=== PATIENT | female | born 1985 | race Caucasian/White ===

== ENCOUNTER 2022-12-12 07:10 | Outpatient (CLI) | payer OTHER, SELFPAY ==
--- NOTE | 2022-12-12 07:15 | CRLHL7_ITS ---
For Patients: As a result of the Century Cures Act, medical imaging exams and procedure reports are released immediately into your electronic medical record. You may view this report before your referring provider. If you have questions, please contact your health care provider. INDICATION: First trimester scan, establish dates. COMPARISON: None. TECHNIQUE: Real-time gonzalez-scale imaging of the pelvis was performed. FINDINGS: Sonographic imaging demonstrates a single living intrauterine gestation. The embryo demonstrates a regular cardiac rate measuring 163 beats per minute. The embryo`s crown-rump length measurement of 2.0 cm corresponds to a gestational age of 8 weeks 4 days with a sonographic due date of 07/20/2023. There is a normal-appearing yolk sac. There are no gross abnormalities noted within the embryo at this early state of development. The gestational sac has a normal appearance. There is no evidence of a perigestational hemorrhage. The amount of fluid within the sac appears appropriate for gestational age. The cervix is closed. The myometrium appears normal. Corpus luteal cyst left ovary. Right ovary not visualized. There are no suspicious fluid collections noted in the cul-de-sac. IMPRESSION: Normal first trimester OB ultrasound exam. Gestational age calculated at 8 weeks 4 days with a sonographic due date of 07/20/2023. Dictated by Prasanth Rosales MD @ 12/13/2022 4:11:59 PM (Electronically Signed)
== END 2022-12-12 07:11 | disposition home or self-care (01) ==
PROVIDERS: Visit Provider Physician Assistant
DX: Z34.91 Encounter for supervision of normal pregnancy, unspecified, first trimester (principal); Z3A.08 8 weeks gestation of pregnancy
CPT/HCPCS: 76817; 82565; 82570; 84156; 84450; 84460; 84520; 84550; 86592; 86703; 86762; 86787; 86803; 86850; 86900; 86901; 87086; 87340; 87491; 87591

== ENCOUNTER 2022-12-23 07:53 | Outpatient (CLI) | payer OTHER, SELFPAY | END 2022-12-23 07:54 | disposition home or self-care (01) | LOC: NFLDREF 09:39 | PROVIDERS: Visit Provider Physician Assistant | DX: Z34.91 Encounter for supervision of normal pregnancy, unspecified, first trimester (principal); Z3A.09 9 weeks gestation of pregnancy | CPT/HCPCS: 82570; 84156 ==

== ENCOUNTER 2023-02-04 09:15 | Outpatient (CLI) | payer OTHER, SELFPAY | END 2023-02-04 09:16 | disposition home or self-care (01) | LOC: NFLDREF 09:17 | PROVIDERS: Visit Provider Advanced Practice Midwife | DX: O09.522 Supervision of elderly multigravida, second trimester (principal); Z3A.16 16 weeks gestation of pregnancy | CPT/HCPCS: 81511 ==

== ENCOUNTER 2023-04-02 15:59 | Outpatient (CLI) | payer OTHER, SELFPAY | END 2023-04-02 16:00 | disposition home or self-care (01) | LOC: NFLDREF 16:00 | PROVIDERS: Visit Provider Advanced Practice Midwife | DX: Z34.92 Encounter for supervision of normal pregnancy, unspecified, second trimester (principal); Z3A.24 24 weeks gestation of pregnancy | CPT/HCPCS: 87086 ==

== ENCOUNTER 2023-04-28 16:18 | Outpatient (CLI) | payer BC, SELFPAY | END 2023-04-28 16:19 | disposition home or self-care (01) | LOC: NFLDREF 05-03 04:37 | PROVIDERS: Visit Provider Advanced Practice Midwife | DX: Z34.91 Encounter for supervision of normal pregnancy, unspecified, first trimester (principal) | CPT/HCPCS: 86592 ==

== ENCOUNTER 2023-05-28 15:58 | Outpatient (CLI) | payer BC, SELFPAY ==
[2023-05-28 15:58] VITALS: BP 136/85; PULSE 67; RESP 16; TEMP 36.6; O2SAT 99
[2023-05-28 16:53] VITALS: BP 146/80; PULSE 68
[2023-05-28 17:02] LABS: Amnisure Rom* Negative
--- NOTE | 2023-05-28 17:07 | P.OBLDTN_ITS ---
OB - Triage/Final Diagnosis Visit Information Date of evaluation: 05/28/23 Narrative: The patient is a 37 year old 4 para 1 at 32.0 weeks gestation by LMP, who presents with complaints of pelvic pressure, right sided groin pain, back pain and increased vaginal discharge for 3 days. She was sent from the clinic with concerns for labor for further evaluation. EFM showed frequent contractions, pt was not fully aware of them until placed on monitor and able to trace. She was hydrated orally and an AmniSure, FFN, UA, wet prep, and Preeclampsia labs were sent. All were negative except her Protein/creatinine ratio was 0.4. She had one elevated blood pressure on admission to triage of 146/80. No further elevations and no recorded elevations at previous visits. At the start of her she had baseline Preeclampsia labs done and at that time her Protein/creatinine ratio was 0.7 with a normal 24 hour urine at that time. Cervical exam 2 hours apart was unchanged, . Reviewed warning signs of PTL with patient and what to come back for, she verbalized understanding. Given a work note to be off work for tomorrow if needed. 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 Reason for evaluation: threatened labor Comments/Additional reasons for admission: Assessment at 32.0 weeks Threatened PTL no cervical change D/C home with PTL precautions Elevated BP without the diagnosis of Preeclampsia S/S Preeclampsia reviewed Monitor BP at next clinic visit Evaluation Cervical dilation (cm): 1 Cervical effacement (%): 30 Vital signs: Vital Signs - 24 hr Temperature 98 F 05/28/23 15:58 Pulse Rate 70 05/28/23 17:18 Respiratory Rate 16 05/28/23 15:58 Blood Pressure 129/86 05/28/23 17:18 Blood Pressure Mean 101 05/28/23 17:18 Pulse Oximetry 99 05/28/23 15:58 05/28/23 16:53 Pulse Rate 68 Blood Pressure 146/80 H Fetus (Single) Heart Rate Baseline: 130 Assistant Plant Manager Variability: Moderate (6-25) Monitor Accelerations: Present Monitor Decelerations: None Station: -3 Final Diagnosis (1) Threatened labor: Status: Acute (2) Elevated blood pressure reading without diagnosis of hypertension: Status: Acute
[2023-05-28 17:09] LABS: Appearance Urine Clear (Clear); Bilirubin Urine Negative (Negative); Blood Urine Negative (Negative); Color Urine Yellow (Yellow); Glucose Urine Negative (Negative); Ketones Urine Negative (Negative); Leukocyte Esterase Urine Negative (Negative); Nitrite Urine Negative (Negative); Protein Urine Negative (Negative); Specific Gravity Urine 1.015 (1.000-1.030); Urobilinogen Urine 0.2 (0.2-1.0); pH Urine 6.5 (5.0-8.5)
[2023-05-28 17:13] LABS: Clue Cells No Clue Cells Seen (None Seen); Trichomonas No Trichomonas Seen (None Seen); Yeast No Yeast Seen (None Seen)
[2023-05-28 17:18] VITALS: BP 129/86; PULSE 70
[2023-05-28 17:27] LABS: Hematocrit 41.8 % (33.0-51.0); Hemoglobin* 14.5 gm/dL (12.0-16.0); Mean Corpuscular HGB Conc 35 gm/dL (32-36); Mean Corpuscular Hemoglobin 33 pg (26-34); Mean Corpuscular Volume 95 fL (80-100); Platelet Count* 220 K/uL (140-440); Red Blood Count 4.42 m/uL (4.00-5.20); White Blood Count* 8.17 K/uL (4.50-11.00)
[2023-05-28 17:28] LABS: Slide Review Reflex No
[2023-05-28 17:38] LABS: Creatinine* 0.6 mg/dL (0.5-1.5); Estimated Glomerular Filt Rate 118 ml/min
[2023-05-28 17:39] LABS: Alanine Aminotransferase* 19 U/L (4-35); Aspartate Amino Transferase* 32 U/L (12-35); Blood Urea Nitrogen* 13 mg/dL (5-24)
[2023-05-28 17:59] LABS: Total Protein Urine 13 mg/dL
[2023-05-28 18:12] LABS: Creatinine Urine 28.4 mg/dL
[2023-05-28 18:38] LABS: Fetal Fibronectin* Negative (Negative)
--- NOTE | 2023-05-28 18:52 | PC.OBNST ---
NST Note NST Note Start: 05/28/23 16:01 Freq: ONCE Status: Active Protocol: Document 05/28/23 18:51 TASH (Rec: 05/28/23 18:52 TASH [id number]) NST Note 4 Para (# of births) 1 EDC 07/23/23 Gestational Age In Weeks & Days 32 Weeks & 0 Days High Risk Factors Advanced Maternal Age Patient Presented with Complaint(s) of Contractions/cramping Reactive Yes Appropriate for Gestational Age Yes RN Steven Mchugh RNC Date 05/28/23 Reactive Yes Appropriate for Gestational Age Yes RENA Vargas, RENA Date 05/28/23 OB NST charge Yes Complete NST Note via Write Note Yes The provider's electronic signature indicates the NST is reactive/appropriate for gestational age. *Note to provider: If an addendum is required, open the patient's chart and click on the note under the Nurse/Allied Health tab.
== END 2023-05-28 19:14 | disposition home or self-care (01) ==
LOC: OB OUT 15:58 → OB 15:59
PROVIDERS: PCP Family Medicine; Visit Provider Advanced Practice Midwife
DX: O47.00 False labor before 37 completed weeks of gestation, unspecified trimester (principal); O09.523 Supervision of elderly multigravida, third trimester; Z3A.32 32 weeks gestation of pregnancy
CPT/HCPCS: 36415; 59025; 81003; 82565; 82570; 84112; 84156; 84450; 84460; 84520; 85027; 87210; G0463

== ENCOUNTER 2023-06-30 07:30 | Outpatient (RCR) | payer BC, SELFPAY | END 2023-09-09 10:19 | disposition home or self-care (01) | PROVIDERS: PCP Family Medicine; Visit Provider Advanced Practice Midwife | DX: N81.89 Other female genital prolapse (principal); Z51.89 Encounter for other specified aftercare | CPT/HCPCS: 87081; 87653; 97112; 97161; 97535 ==

== ENCOUNTER 2023-07-10 22:25 | Inpatient (IN) | payer BC, SELFPAY ==
[2023-07-10] VITALS (14 sets, daily range): BP systolic 109–168; BP diastolic 59–93; PULSE 64–81; RESP 16; TEMP 36.7–36.9; BMI 25.5
[2023-07-10 20:40] LABS: Amnisure Rom* Negative
[2023-07-10 21:22] LABS: Creatinine Urine 103.8 mg/dL
[2023-07-10 21:23] LABS: Hematocrit 40.6 % (33.0-51.0); Hemoglobin* 14.1 gm/dL (12.0-16.0); Mean Corpuscular HGB Conc 35 gm/dL (32-36); Mean Corpuscular Hemoglobin 33 pg (26-34); Mean Corpuscular Volume 94 fL (80-100); Platelet Count* 179 K/uL (140-440); White Blood Count* 8.49 K/uL (4.50-11.00)
[2023-07-10 21:24] LABS: Slide Review Reflex No
[2023-07-10 21:29] LABS: Total Protein Urine 256 mg/dL
[2023-07-10 21:35] LABS: Aspartate Amino Transferase* 34 U/L (12-35); Blood Urea Nitrogen* 23 mg/dL (5-24); Creatinine* 0.7 mg/dL (0.5-1.5); Estimated Glomerular Filt Rate 113 ml/min
[2023-07-10 21:36] LABS: Alanine Aminotransferase* 18 U/L (4-35)
--- NOTE | 2023-07-10 22:15 | P.LDBA_ITS ---
Subjective History of Present Illness Time Seen by Provider: 22:00 Date Seen: 07/10/23 Narrative: Patient is being admitted to Labor and Delivery for Preeclampsia without severe features. She presented with questionable leaking fluids d was found to have elevated blood pressures of [id number]'s. She denies headaches or RUQ pain. She states that she has had occasional floaters in her vision over the last few weeks but denies changes in this. Labs were all found to be normal except her P/C ratio was elevated at 2.4. She is a 38 year old at 38.1 weeks gestation. Her full history and physical was dictated by Saba Frazier CNM on 06/30/23. Please see this for details. She has been feeling occasional abdominal tightening but denies contractions. She is appreciating good movement.We had a lengthy discussion about induction options including pitocin and cytotec. A SVE found her to be 3/70%/-2. She would prefer to start with cytotec induction with pitocin to follow. Specific Issues/Plans H & P done by Belen Frazier CNM/ Swapnil WARD on 06/30/2023 1. AMA MaterniT 21 ordered: Low Risk Level 2 ultrasound: normal, EFW 72% 2. History of preeclampsia, developed in labor Baseline pre E labs: pr/cr ratio: 0.70, remainder normal; 24 hour: 0.1 24 hour urine for protein: 168 ASA 81mg recommended: planning to start One elevated BP when see in triage at 32 weeks 3. Father with arachnoid cyst. Nephew with hydrocephalus AFP ordered 02/04 - negative 4. Hx of miscarriage x2 Vaginal progesterone until 12 weeks 5. Evaluated for PTL at 32 weeks no cervical change, frequent ctxs on monitor TDAP-05/28/23 Flu- 02/04/2023 Covid- fully vaccinated, initial series, 4 boosters RSV- 05/28/2023 OB - Problem Based A/P Additional Plan (1) Encounter for induction of labor: Status: Acute (2) AMA (advanced maternal age) multigravida 35+: Status: Acute (3) Preeclampsia: Status: Acute Plan ASSESSMENT:? at 38.1 weeks gestation? GBS negative? Uncomplicated ? Elevated BP on admit. P/C ratio 2.4. Preeclampsia without severe features. IOL ?? PLAN:? 1. Reviewed risks and benefits of IOL with pitocin vs cytotec. Pt prefers cytotec. Pitocin to follow if needed.? 4. Candidate for analgesia of choice. Planning unmedicated with nitrous but open to epidural.? 5. Monitor blood pressures. MD solar fabrication technician made aware of Preeclampsia without severe features diagnosis. 6. Anticipate ? 7. Place IV. Continuous monitoring. Delivery/Labor/Induction Plan Plan: induction Induction method: per misoprostol protocol OB Result Labs Blood Type: A (+) positive GBS Status: negative OB Exam Physical Exam Vital signs: Temp Pulse Resp BP 98.5 F 68 16 168/85 H 07/10/23 20:06 07/10/23 22:08 07/10/23 20:20 07/10/23 22:08 Narrative: Psychiatric:? Alert and oriented x3? HEENT:? Normocephalic, atraumatic? Neck:? Supple without adenopathy or thyromegaly? Lungs:? Clear to auscultation bilaterally? Heart:? Regular rate and rhythm, no murmur, rub or gallop? Abdomen:? Soft, nontender, and gravid? Extremities:? No edema or erythema? Detailed Labor and Delivery Exam Patient Gravid: Yes Dilation (cm): 3 Effacement (%): 70 Cervix position: anterior Consistency: medium Contraction Frequency: occasional Tachysystole: No Contraction intensity: Mild Fetus (Single) Station: -2 Amniotic Membrane Status: intact Heart Rate Baseline: 120 Monitor Accelerations: Present Monitor Decelerations: None [facility] Variability: Moderate (6-25)
[2023-07-10] MEDS: LABETALOL HCL 5 MG/ML inj IVP ×3 (22:47→23:38)
--- NOTE | 2023-07-10 22:47 | PM.OBPNL ---
Subjective Time Seen by Provider: 22:45 Date Seen: 07/10/23 Narrative: Genia had two blood pressures 20 minutes apart that were 168/85 and 161/93. We had the discussion about the recommended treatment for these blood pressures and the need for IV magnesium treatment. We also discussed that she risks out of CNM care. She is agreeable to this. Dr. Leonard was called and consulted who will assume care and plans to come evaluate the patient and make a plan of care with her at that time. Questions answered. Objective Vital Signs: Last Vital Signs Temp 98.5 F 07/10/23 20:06 Pulse 65 07/10/23 22:32 Resp 16 07/10/23 20:20 BP 161/93 H 07/10/23 22:32 Contractions Contraction intensity: Mild Assessment Station: -2 Heart Rate Baseline: 120 Monitor Accelerations: Present Monitor Decelerations: None Plan Plan: Care transferred to the OB provider service at this time.
[2023-07-10] MEDS: MAGNESIUM IV 4 GM/100 ML PIGGYBACK IVPB (23:01)
[2023-07-10] MEDS: LACTATED RINGERS 1000 ML 1,000 ML 75 ML IV (23:05)
[2023-07-10] MEDS: ONDANSETRON 2 MG/ML inj 4 MG IV (23:26)
[2023-07-10] MEDS: MAGNESIUM Infusion 40 GM/1,000 ML IV.SOLN IVPB (23:42)
--- NOTE | 2023-07-10 23:44 | P.OBCN_ITS ---
OB - CN: HPI Date of Consult Time Seen by Provider: 23:44 Date Seen: 07/10/23 Patient: [facility] Patient Consult date: 07/10/23 Requesting Physician: Tierra Lawton CNM Primary Care Provider: Little Simpson MD Consult Narrative Reason for consult: gestational hypertension (Pre-eclampsia with severe f eatures) Narrative: The patient is a 38 year old G 4 P 1021 at 38 1/7 weeks gestation that was admitted to the Center on 07/10/23 for pre-eclampsia with severe features based on BP criteria and proteinuria. She had initially presented to triage complaining of not feeling right, with some nausea and possible leakage of fluid. Amnisure was negative for membrane rupture. Blood pressures were elevated, with two values >160 systolic requiring treatment. She has a history of pre-eclampsia without severe features in labor during her previous . She did not require antihypertensive medication or magnesium sulfate at that time. OB Problem List: 1. AMA MaterniT 21 ordered: Low Risk Level 2 ultrasound: normal, EFW 72% 2. History of preeclampsia, developed in labor Baseline pre E labs: pr/cr ratio: 0.70, remainder normal; 24 hour: 0.1 24 hour urine for protein: 168 ASA 81mg recommended: planning to start One elevated BP when see in triage at 32 weeks 3. Father with arachnoid cyst. Nephew with hydrocephalus AFP ordered 02/04 - negative 4. Hx of miscarriage x2 Vaginal progesterone until 12 weeks 5. Evaluated for PTL at 32 weeks no cervical change, frequent ctxs on monitor History of Present Dating criteria: based on LMP care: good care Ultrasounds: normal 1st trimester US and normal mid trimester US (level 2) complications: preeclampsia Type: severe History History 4 Elective abortions Para 1 Spontaneous abortions 2 Hx # Term Pregnancies Ectopic pregnancies Hx # Pregnancies Multiple births Number of Living Children 1 Past Pregnancies Del. Date GA/Weeks Outcome Route wt Inf Gender Labor Lgth Anesthesia Location Provider Compli Unknown 38 live - full term 8 lb 9 oz [place] preeclampsia Labs Blood type: A (+) positive Rubella: immune RPR/VDLR: nonreactive GBS status: negative HBsAG: negative Review of Systems Narrative: Occasional floaters in vision. Denies headaches or RUQ pain. Mild nausea this evening, worse since magnesium sulfate infusion initiated. 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) History of difficulty in concentrating ?Z87.898 - Personal history of other specified conditions (ICD-10) Second degree perineal laceration (07/11/21) ?O70.1 - Second degree perineal laceration during delivery (ICD-10) Surgical History History of wisdom tooth extraction (~2001) ?K08.409 - Partial loss of teeth, unspecified cause, unspecified class (ICD- 10) History of placement of ear tubes (1985) ?Z96.22 - Myringotomy tube(s) status (ICD-10) Normal vaginal delivery (07/11/21) ?O80 - Encounter for full-term uncomplicated delivery (ICD-10) Family History Father High blood pressure History of pacemaker Melanoma Arachnoid cyst Mother High blood pressure Aunt Brain cancer Melanoma Aunt Schizophrenia Melanoma Aunt Multiple sclerosis Social History Narrative: , party demonstrator, 1 child, currently Lifetime nonsmoker Currently not drinking, usually 4 drinks a week No drug use no regular exercise History of blood transfusion: No. SOCIAL HISTORY: Occupation: Teacher. Marital status: . Nondenominational/cultural needs: no. Chemical or radiation exposure: no. Pre- tobacco use: no. Pre- alcohol use: 1 per day. Current tobacco use: no. Current alcohol use: no. Recreational drug use: no. Dietary restrictions: no. Blood transfusion acceptable in an emergency: yes. FAMILY AND GENETIC HISTORY: Father with arachnoid cyst. Nephew with hydrocephalus PSYCHOSOCIAL HISTORY: History of depression or currently depressed: no. Current or past physical, emotional, or sexual mistreatment: no. Problems that will make it hard to make it to appointments: no. What is your current living situation?: I presently have a place to live Problems where you live: no known problems In the past 12 months, utilities in danger of being shut off: no In past 12 months, lack of transportation kept you from medical appts, meetings, work, or getting things needed for daily living: no In the past 12 mos, have been you worried that your food would run out before you had money to buy more?: never true In the past 12 mos, the food you bought just didn't last and you didn't have money to buy more?: never true Smoking Status: Never smoker How often does anyone, including family, friends and others, physically hurt you : never How often does anyone, including family, friends and others, insult or talk down to you: never How often does anyone, including family, friends and others, threaten you with harm: never How often does anyone, including family, friends and others, scream or curse at you: never Little interest or pleasure in doing things: not at all Feeling down, depressed, or hopeless: not at all Meds Home Medications and Allergies Home Medications Medication Instructions Recorded Confirmed Type docosahexaenoic acid 200 mg 1 mg PO QDAY 12/12/22 07/10/23 History capsule ( DHA) aspirin 81 mg tablet,delayed 81 mg PO QDAY 02/04/23 07/10/23 History release (Adult Aspirin Regimen) Allergies Allergy/AdvReac Type Severity Reaction Status Date / Time No Known Drug Allergies Allergy Verified 07/07/23 15:36 OB - H&P: Exam Physical Exam: Vital signs: Temp Pulse Resp BP 98.5 F 78 16 161/83 H 07/10/23 20:06 07/10/23 23:28 07/10/23 20:20 07/10/23 23:28 Constitutional: Constitutional: no acute distress Routine HEENT Exam: Head: Present atraumatic Routine Respiratory Exam: Respiratory: Present CTA bilaterally Routine Cardiovascular Exam: Cardiovascular: RRR Routine Abdominal Exam: Abdominal: Present soft Comments: gravid Routine Exam: Comments: cervix exam per CNM: /-2 Detailed Labor and Delivery Exam: Patient Gravid: Yes Dilation (cm): 3 Effacement (%): 70 Cervix position: mid Consistency: soft Cervical ripeness score: 6 Tachysystole: No Fetus (Single): Station: -2 Routine Extremities Exam: Extremities: Present pedal edema (trace) Routine Skin Exam: Present intact Routine Neurological Exam: Present alert Routine Psychiatric Exam: Present normal affect and anxious OB - Results Labs Labs: Short CBC 07/10/23 Range/Units 21:10 WBC 8.49 (4.50-11.00) K/uL Hgb 14.1 (12.0-16.0) gm/dL Hct 40.6 (33.0-51.0) % Plt Count 179 (140-440) K/uL BMP 07/10/23 21:10 BUN 23 Creatinine 0.7 Liver Function 07/10/23 Range/Units 21:10 AST 34 (12-35) U/L ALT 18 (4-35) U/L OB - CN: A/P Assessment and Plan (1) Encounter for induction of labor: Status: Acute (2) AMA (advanced maternal age) multigravida 35+: Status: Acute (3) Preeclampsia: Problem details: severe Status: Acute Plan 1. Magnesium sulfate IV for seizure prophylaxis. Patient aware of rationale for the infusion, normal side effects, and usual duration of treatment. 2. Induction of labor. Reviewed methods such as misoprostol administration, IV pitocin, amniotomy. Patient prefers to begin with misoprostol. 3. Continuous monitoring. 4. Reviewed care providers, recommend OB MD care, change of OB provider in am. 5. Patient has a benzol operator whom she would like to be present when she is in active labor. 6. Thinking about nitrous, perhaps epidural for pain in active labor. Total Time Spent Total time spent: 30 minutes
[2023-07-11] VITALS (65 sets, daily range): BP systolic 112–203; BP diastolic 55–132; PULSE 63–96; RESP 16–17; TEMP 36.6–37.1; O2SAT 96
[2023-07-11] MEDS: miSOPROStoL 25 MCG/0.25 TABLET PO ×2 (00:24→04:29)
[2023-07-11] MEDS: hydrOXYzine pamoate 25 MG CAPSULE 100 MG PO (00:24)
--- NOTE | 2023-07-11 06:39 | PM.OBPNL ---
Subjective Time Seen by Provider: 06:30 Date Seen: 07/11/23 Narrative: Patient was comfortable over night. Not really feeling contractions this morning. Nausea improved. Objective Exam: General appearance: alert, cooperative, no acute distress Abdomen: soft, gravid, nontender : Cervix 5/85%/ vertx at -1 Extremities: trace edema Vital Signs: Last Vital Signs Temp 98.7 F 07/11/23 04:25 Pulse 81 07/11/23 06:34 Resp 16 07/11/23 04:25 BP 135/81 07/11/23 06:34 Pelvic Exam Dilation (cm): 5 Effacement (%): 85 Station: -1 Contractions Monitor mode: External Contraction pattern: Irregular Contraction intensity: Mild Pitocin Rate (mU/min): 0 Assessment Assessment: induction ongoing Station: -1 Amniotic Membrane Status: AROM (0632, clear fluid) Status: Category ll Heart Rate Baseline: 130 Residential Variability: Moderate (6-25) Monitor Decelerations: None Plan Plan: Amniotomy performed. Expectant management. Pain management as needed.
[2023-07-11 07:50] LABS: Hematocrit 39.8 % (33.0-51.0); Hemoglobin* 13.5 gm/dL (12.0-16.0); Mean Corpuscular HGB Conc 34 gm/dL (32-36); Mean Corpuscular Hemoglobin 33 pg (26-34); Mean Corpuscular Volume 96 fL (80-100); Platelet Count* 163 K/uL (140-440); Red Blood Count 4.14 m/uL (4.00-5.20); White Blood Count* 6.77 K/uL (4.50-11.00)
[2023-07-11] MEDS: LABETALOL HCL 5 MG/ML inj IVP ×3 (07:56→08:40)
[2023-07-11 08:00] LABS: Alanine Aminotransferase* 17 U/L (4-35); Aspartate Amino Transferase* 29 U/L (12-35); Blood Urea Nitrogen* 23 mg/dL (5-24); Creatinine* 0.8 mg/dL (0.5-1.5); Est. Creatinine Clearance* 96.18; Estimated Glomerular Filt Rate 97 ml/min
[2023-07-11] MEDS: NIFEdipine 30 MG TAB.ER.24 60 MG PO ×2 (08:23→20:10)
[2023-07-11] MEDS: OXYTOCIN 30 unit/500 ML in NS 30 UNIT/500 ML BAG 300 UNIT IVPB ×2 (08:38→08:42)
[2023-07-11] MEDS: LIDOCAINE 1 % PF 30 ML INJECTION (08:40)
[2023-07-11 08:50] LABS: Slide Review Reflex No
[2023-07-11] MEDS: ACETAMINOPHEN 500 MG TABLET 1000 MG PO ×2 (09:24→16:12)
--- NOTE | 2023-07-11 09:30 | W.PM.VAGDEL1 ---
Procedure Delivery date: 07/11/23 Procedure Done: Global Events: Pre-Eclampsia Delivery augmentation: rupture of membranes Delivery monitor: external FHT Route of delivery: Laceration description: Perineal - 2nd Degree Delivery repair: Vicryl Estimated blood loss (mL): 50 Anesthesia type: Local Disposition: floor Narrative: Genia is a 38 year-old G 4 P 2012 admitted on 07/11/23 at 38 and 2/7 weeks gestation for symptoms of preeclampsia and subsequently underwent an induction of labor. She subsequently developed severe pre-eclampsia and was transferred to the MD service. She has been on magnesium sulfate for seizure prophylaxis. She has had multiple severe range in blood pressures throughout her labor course and has received multiple doses of labetalol (20mg, 20mg, 40mg, 80mg). She was given PO nifedipine 60 mg ER for maintenance blood pressure control. Cervical exam on admission was 3cm/70 % effaced/-2 station with membranes intact in vertex presentation. AROM occurred at 0634 on 07/11/23 with clear fluid. Labor Analgesia: Nitrous gas Pitocin: No Labor onset: 07/11/23 at 0720 Complete: 07/11/23 at 0834 Pushin07/11/23 at 0834 heart tones during second stage were II with small variable during contractions that self resolves in between. At 0835 a viable female infant delivered in vertex OA presentation via spontaneous vaginal delivery. Infant was placed on maternal abdomen. Cord was clamped and cut after a 30-60 second delay. Nose and mouth were bulb suctioned. weight: pending. 8 at 1 minute and 9 at 5 minutes. Shoulder dystocia: No. Nuchal cord: No . Placenta delivered spontaneously and complete at 0847 with a 3 vessel cord. Complications: None. Mother and infant were stable after delivery. Laceration(s): 2nd degree, repaired in a continuous locking fashion with 2-0 Vicryl. Estimated blood loss: 50 mL. Sponge and needles counts are correct. Mother and infant were stable at the time of this note.
[2023-07-11] MEDS: HYDRALAZINE HCL 20 MG/ML inj IVP (10:37)
[2023-07-11] MEDS: LACTATED RINGERS 1000 ML 1,000 ML 75 ML IV (11:44)
[2023-07-11] MEDS: IBUPROFEN 600 MG TABLET PO ×2 (12:51→19:26)
[2023-07-11 14:42] LABS: Hematocrit 40.6 % (33.0-51.0); Mean Corpuscular HGB Conc 35 gm/dL (32-36); Mean Corpuscular Hemoglobin 33 pg (26-34); Mean Corpuscular Volume 95 fL (80-100); Platelet Count* 158 K/uL (140-440); Red Blood Count 4.26 m/uL (4.00-5.20); White Blood Count* 11.41 K/uL (4.50-11.00)
[2023-07-11 14:54] LABS: Creatinine* 0.7 mg/dL (0.5-1.5); Est. Creatinine Clearance* 109.92; Estimated Glomerular Filt Rate 113 ml/min
[2023-07-11 14:55] LABS: Alanine Aminotransferase* 17 U/L (4-35); Aspartate Amino Transferase* 35 U/L (12-35); Blood Urea Nitrogen* 20 mg/dL (5-24)
[2023-07-11 14:58] LABS: Slide Review Reflex No
[2023-07-11 19:39] LABS: Hematocrit 40.7 % (33.0-51.0); Mean Corpuscular HGB Conc 34 gm/dL (32-36); Mean Corpuscular Hemoglobin 33 pg (26-34); Mean Corpuscular Volume 96 fL (80-100); Platelet Count* 149 K/uL (140-440); Red Blood Count 4.25 m/uL (4.00-5.20); White Blood Count* 9.27 K/uL (4.50-11.00)
[2023-07-11 19:44] LABS: Slide Review Reflex No
[2023-07-11 19:56] LABS: Alanine Aminotransferase* 17 U/L (4-35); Aspartate Amino Transferase* 34 U/L (12-35); Blood Urea Nitrogen* 19 mg/dL (5-24); Creatinine* 0.7 mg/dL (0.5-1.5); Est. Creatinine Clearance* 109.92; Estimated Glomerular Filt Rate 113 ml/min
[2023-07-12] MEDS: LACTATED RINGERS 1000 ML 1,000 ML 75 ML IV (00:50)
[2023-07-12 01:44] LABS: Hematocrit 36.8 % (33.0-51.0); Hemoglobin* 12.5 gm/dL (12.0-16.0); Mean Corpuscular HGB Conc 34 gm/dL (32-36); Mean Corpuscular Hemoglobin 33 pg (26-34); Mean Corpuscular Volume 97 fL (80-100); Platelet Count* 131 K/uL (140-440)
[2023-07-12 01:53] LABS: Slide Review Reflex No
[2023-07-12 01:59] LABS: Alanine Aminotransferase* 15 U/L (4-35); Aspartate Amino Transferase* 33 U/L (12-35); Blood Urea Nitrogen* 18 mg/dL (5-24); Creatinine* 0.7 mg/dL (0.5-1.5); Est. Creatinine Clearance* 109.92; Estimated Glomerular Filt Rate 113 ml/min
[2023-07-12 02:25] LABS: Magnesium* 7.1 mg/dL (1.5-2.6)
[2023-07-12] MEDS: MAGNESIUM Infusion 40 GM/1,000 ML IV.SOLN IVPB (03:33)
[2023-07-12 03:36] VITALS: BP 135/78; PULSE 72; RESP 16; TEMP 36.5
[2023-07-12] MEDS: ACETAMINOPHEN 500 MG TABLET 1000 MG PO ×4 (03:49→22:00)
[2023-07-12] MEDS: IBUPROFEN 600 MG TABLET PO ×3 (06:29→18:31)
[2023-07-12 07:35] LABS: Hematocrit 39.6 % (33.0-51.0); Hemoglobin* 13.5 gm/dL (12.0-16.0); Mean Corpuscular HGB Conc 34 gm/dL (32-36); Mean Corpuscular Hemoglobin 33 pg (26-34); Mean Corpuscular Volume 97 fL (80-100); Platelet Count* 136 K/uL (140-440); Red Blood Count 4.09 m/uL (4.00-5.20); White Blood Count* 7.08 K/uL (4.50-11.00)
[2023-07-12 07:39] LABS: Slide Review Reflex No
[2023-07-12 07:48] LABS: Alanine Aminotransferase* 18 U/L (4-35); Aspartate Amino Transferase* 34 U/L (12-35); Blood Urea Nitrogen* 16 mg/dL (5-24); Creatinine* 0.6 mg/dL (0.5-1.5); Est. Creatinine Clearance* 128.24; Estimated Glomerular Filt Rate 118 ml/min
[2023-07-12 07:58] LABS: Magnesium* 7.7 mg/dL (1.5-2.6)
[2023-07-12] MEDS: DOCUSATE SODIUM 100 MG CAPSULE PO (09:09)
[2023-07-12] MEDS: NIFEdipine 30 MG TAB.ER.24 60 MG PO ×2 (09:09→21:32)
[2023-07-12 09:28] VITALS: BP 113/77; PULSE 84; RESP 16; TEMP 36.5; O2SAT 97
[2023-07-12 10:12] LABS: Rapid Plasma Reagin (RPR) Non Reactive (Non Reactive)
[2023-07-12 12:14] VITALS: BP 133/80; PULSE 76; RESP 16; TEMP 36.9; O2SAT 96
--- NOTE | 2023-07-12 12:51 | PM.OBPNVD1 ---
OB - PN:Subj Subjective Time Seen by Provider: 09:00 Date Seen: 07/12/23 Narrative: Overnight patient had no complaints. Her pain is well controlled on oral pain medications. She is tolerating a regular diet. She has passed flatus. She is ambulating without difficulty. Lochia is scant. She is urinating without kim. Patient denies chest pain, SOB, n/v, headache, RUQ pain, vision changes, dizziness. OB - PN: Obj Exam Physical Exam: Vital signs: Temp Pulse Resp BP Pulse Ox O2 Del Method 98.5 F 76 16 133/80 96 Room Air 07/12/23 12:14 07/12/23 12:14 07/12/23 12:14 07/12/23 12:14 07/12/23 12:14 07/12/23 12:14 Narrative: Physical exam: General: No acute distress Psych: Alert and oriented x4, full affect HEENT: Normocephalic, atraumatic Heart: Regular rate and rhythm, no murmur rub or gallop Lungs: Clear to auscultation bilaterally Abdomen: Normoactive bowel sounds, soft, no tenderness, rebound, or guarding. Fundus firm, 3 cm below the umbilicus. Skin: No lesions or rashes Lower extremities: 1+ bilateral lower extremity edema Pelvic exam: Scant blood on pad OB - PN: Obj Data Labs Labs: Laboratory Results - last 24 hr 07/10/23 07/11/23 07/11/23 07:35 14:10 19:32 WBC 11.41 H 9.27 RBC 4.26 4.25 Hgb 14.0 14.0 Hct 40.6 40.7 MCV 95 96 MCH 33 33 MCHC 35 34 Plt Count 158 149 BUN 20 19 Creatinine 0.7 0.7 Estimated Creat Clear 109.92 109.92 Estimated GFR 113 113 Magnesium AST 35 34 ALT 17 17 RPR Screen Non Reactive 07/12/23 07/12/23 07/12/23 01:30 01:34 07:27 WBC 7.80 7.08 RBC 3.80 L 4.09 Hgb 12.5 13.5 Hct 36.8 39.6 MCV 97 97 MCH 33 33 MCHC 34 34 Plt Count 131 L 136 L BUN 18 16 Creatinine 0.7 0.6 Estimated Creat Clear 109.92 128.24 Estimated GFR 113 118 Magnesium 7.1 H* 7.7 H* AST 33 34 ALT 15 18 RPR Screen OB - PN: A/P Delivery Assessment and Plan (1) Severe preeclampsia: Status: Acute Assessment and Plan: Pre-Eclampsia with severe features ? Based on severe ranging blood pressures requiring IV antihypertensives ? BPs 110-130s/70-80s since midnight ? Symptoms: none ? Magnesium: s/p 24 hrs ? IV antihypertensives: Nifedipine 60 mg Q12H ? Pre-eclampsia labs on 07/12/23: Hgb 13.5 Plt 136 Cr 0.6 ALT 18 AST 34 ? UOP: 2.75 cc/kg/hr (2) Care and examination of lactating mother: Status: Acute Assessment and Plan: - progressing appropriately
[2023-07-12 13:48] LABS: Magnesium* 4.8 mg/dL (1.5-2.6)
[2023-07-12 15:04] VITALS: BP 135/76; PULSE 78; RESP 18; TEMP 36.6; O2SAT 96
[2023-07-12 21:00] VITALS: BP 113/73; PULSE 96; RESP 15; TEMP 36.7; O2SAT 97
[2023-07-13 01:00] VITALS: BP 120/83; PULSE 89; RESP 18; TEMP 36.9; O2SAT 96
[2023-07-13] MEDS: IBUPROFEN 600 MG TABLET PO ×3 (01:01→12:41)
[2023-07-13] MEDS: ACETAMINOPHEN 500 MG TABLET 1000 MG PO ×2 (04:25→10:58)
[2023-07-13] MEDS: DOCUSATE SODIUM 100 MG CAPSULE PO (07:44)
[2023-07-13] MEDS: NIFEdipine 30 MG TAB.ER.24 60 MG PO (07:44)
[2023-07-13 07:50] VITALS: BP 132/88; PULSE 82; RESP 16; TEMP 36.7; O2SAT 95
--- NOTE | 2023-07-13 10:42 | PM.OBDSVD1 ---
DS: Providers Provider Time Seen by Provider: 08:45 Date Seen: 07/13/23 Date of admission: 07/10/23 22:25 Primary care physician: Little Simpson MD Admitting Clinician: Tierra Lawton CNM Consults: 07/10/23 22:54 Consult to Physician [CONS] Routine Comment: Consulting Provider: Aleah Leonard Has provider been notified: Yes Attending Physician on discharge: Aleah Leonard MD Date of Discharge: 07/13/23 DS: Diagnosis Discharge Diagnosis (1) Severe preeclampsia: Status: Acute (2) Status post delivery at term: Status: Acute Exam Const: Vital Signs, click to edit/add: Vital Signs - 24 hr 07/12/23 12:14 07/12/23 15:04 07/12/23 21:00 Temperature 98.5 F 97.8 F 98.1 F Pulse Rate [Left P ulse Oximeter] 76 78 96 Respiratory Rate 16 18 15 Blood Pressure [Ri ght Arm] 133/80 135/76 113/73 Pulse Oximetry 96 96 97 Oxygen Delivery Me thod Room Air Room Air Room Air 07/13/23 01:00 07/13/23 07:50 Temperature 98.4 F 98.1 F Pulse Rate [Left P ulse Oximeter] 89 82 Respiratory Rate 18 16 Blood Pressure [Ri ght Arm] 120/83 132/88 Pulse Oximetry 96 95 Oxygen Delivery Me thod Room Air Room Air Documenting provider has reviewed patient's vital signs: yes Common normals: no apparent distress, oriented x3 and alert General appearance: cooperative HENMT: Common normals: normocephalic Head and scalp: normocephalic Eye: General eye: normal appearance of both eyes Neck & C-Spine: Common normals: full ROM Resp: Common normals: normal respiratory effort Cardio: Common normals: regular rate and regular rhythm Rate: regular rate Rhythm: regular rhythm GI: Common normals: soft to palpation and non-tender Palpation: soft : Uterus: U/2 and firm Lochia: small Extremity: Common normals: normal to inspection General: edema (2+ feet and ankles) Neuro: Common normals: oriented x3 Sensorium/orientation: alert OB - DS: Summary Hospital Course Hospital Course: The patient is a 38 year old G 4 now P 2021 at 38+ weeks gestation that was admitted to the Center on 07/10/23 for induction of labor secondary to severe preeclampsia. She had an uncomplicated vaginal delivery. She delivered a viable female . She is breast feeding. She was kept on a magnesium sulfate infusion throughout labor induction, delivery, and for 24 hours . the patient has done well. Blood pressures have been stable on nifedipine ER 60 mg twice daily. Peripartum Data delivery method: Vaginal Laceration description: Perineal - 2nd Degree Episiotomy description: None complications: none [place] Gender: Female Discharge Plan: Home Status at Discharge Functional status at discharge: independent ambulation Overall status at discharge: patient is back to baseline Time Spent with Patient Time attestation: Total time spent providing and/or coordinating discharge services: Discharge Plan Discharge Disposition: Home, Self-Care Date of Admission: 07/10/23 22:25 Attending Provider on Discharge: Aleah Leonard Consulting Providers: Aleah Leonard Primary Care Provider: Little Simpson Condition: Stable Anticipated Discharge Date/Time: 07/13/23 10:48 Discharge Medications: New docusate sodium 100 mg Capsule 100 mg PO DAILY PRNQty: 30 0RF ibuprofen 600 mg Tablet 600 mg PO Q6H PRNQty: 30 0RF nifedipine 30 mg Tablet Extended Release 24hr 60 mg PO BID Qty: 60 0RF Continued DHA 200 mg capsule 1 mg PO QDAY Discontinued aspirin [Adult Aspirin Regimen] 81 mg tablet,delayed release (DR/EC) 81 mg PO QDAY Discharge Orders: Discharge Order (Routine); Ordered 07/13/23 Ordered By: Aleah Leonard Patient Education: OB Vaginal/Breast Feeding Activity Level: Activity as Tolerated Discharge Diet: Regular Follow Up Appointments: Little Simpson MD [Primary Care Provider] - Forms: [employer] Info Instructions
== END 2023-07-13 15:06 | disposition home or self-care (01) | DRG 560 ==
LOC: OB OUT 22:25 → OB 07-11 07:22
PROVIDERS: Obstetrics & Gynecology; Admitting Provider Advanced Practice Midwife; PCP Family Medicine; Visit Provider Obstetrics & Gynecology
DX: O14.14 Severe pre-eclampsia complicating childbirth (principal); Z3A.38 38 weeks gestation of pregnancy; O70.1 Second degree perineal laceration during delivery; N96 Recurrent pregnancy loss; Z37.0 Single live birth
CPT/HCPCS: 36415; 59200; 82565; 82570; 83735; 84112; 84156; 84450; 84460; 84520; 85018; 85027; 86592; 86850; 86900; 86901; 88307; A9270; J0360; J2001; J2405; J3475; J7120

== ENCOUNTER 2023-07-15 14:01 | Outpatient (CLI) | payer BC, SELFPAY | END 2023-07-15 14:02 | disposition home or self-care (01) | PROVIDERS: PCP Family Medicine; Visit Provider Obstetrics & Gynecology | DX: O14.13 Severe pre-eclampsia, third trimester (principal); Z3A.38 38 weeks gestation of pregnancy | CPT/HCPCS: 82565; 84450; 84460 ==

== ENCOUNTER 2023-07-20 11:11 | Outpatient (CLI) | payer BC, SELFPAY | END 2023-07-20 11:12 | disposition home or self-care (01) | LOC: NFLDREF 07-22 07:51 | PROVIDERS: PCP Family Medicine; Referring Provider Family Medicine; Visit Provider Obstetrics & Gynecology | DX: O14.14 Severe pre-eclampsia complicating childbirth (principal); Z3A.38 38 weeks gestation of pregnancy | CPT/HCPCS: 84450; 84460 ==

== ENCOUNTER 2023-07-27 01:12 | Day surgery (SDC) | payer BC, SELFPAY ==
[2023-07-27] VITALS (39 sets, daily range): BP systolic 95–144; BP diastolic 56–103; PULSE 76–115; RESP 14–18; TEMP 36.6–38.1; O2SAT 93–102; BMI 22.8
[2023-07-27 01:32] LABS: Basophils Absolute Auto 0.02 K/uL (0.00-0.30); Basophils Percent Auto 0.3 % (0.0-3.0); Eosinophils Absolute Auto 0.17 K/uL (0.00-0.50); Eosinophils Percent Auto 2.5 % (0.0-7.0); Hematocrit 38.2 % (33.0-51.0); Immature Granulocytes Abs Auto 0.07 K/uL (0.00-0.30); Lymphocytes Absolute Auto 2.28 K/uL (0.90-2.90); Lymphocytes Percent Auto 33.8 % (20-44); Mean Corpuscular HGB Conc 34 gm/dL (32-36); Mean Corpuscular Hemoglobin 32 pg (26-34); Mean Corpuscular Volume 95 fL (80-100); Neutrophils Absolute Auto 3.74 K/uL (1.7-7.0); Neutrophils Percent Auto 55.4 % (42.0-72.0); Platelet Count* 254 K/uL (140-440); RDW Coefficient of Variation % 12.4 % (11.5-15.5); Red Blood Count 4.04 m/uL (4.00-5.20); Slide Review Reflex No; White Blood Count* 6.75 K/uL (4.50-11.00)
--- NOTE | 2023-07-27 01:39 | US_ITS ---
Patient: CELSO MCELROY Facility:?[facility] Patient ID:?[id number] Site Patient ID:?[id number]. Site :?[id number] Study:?US-Pelvis-07/27/2023 3:24:04 AM Ordering Physician:Mahad Calderon Final Report: INDICATION: Preeclampsia status post induced delivery, post Hemorrhage TECHNIQUE: Ultrasound pelvis transvaginal. Endovaginal imaging was performed to better visualize the endometrium and ovaries. Real-time gonzalez scale sonographic images with spectral and color Doppler imaging of the ovaries were obtained. COMPARISON: 12/12/2022 FINDINGS: Uterus: 10.7 x 6 x 7.8 cm. Vascularity of the endometrial complex is noted near the uterine fundus. Normal echotexture of the myometrium noted with no masses are seen. Endometrium: There is a heterogeneous region of endometrial thickening near the uterine fundus with solid and cystic components measuring 3 cm. Right ovary: 3 x 1.3 x 1 cm. The right ovary is normal in appearance and echotexture. Color Doppler exam of the right ovary is limited. Left ovary: 3 x 1.4 x 1.5 cm. The left ovary is normal in appearance and echotexture. Color Doppler exam of the left ovary is limited. Cul-de-sac: No significant ascites noted. IMPRESSION: 1. There is a heterogeneous region of endometrial thickening near the uterine fundus with solid and cystic components measuring 3 cm. Findings are likely due to retained products of conception. Dictated by Ap Mccall MD @ 07/27/2023 3:46:24 AM Dictated by: Ap Mccall MD @ 07/27/2023 03:46:31 Signed by:?Ap Mccall MD @07/27/2023 3:46:31 AM (Electronic Signature)
--- NOTE | 2023-07-27 01:41 | ED.GENADULT ---
HPI - General Adult General Date Seen: 07/27/23 Chief complaint: Post OB/Post- Complication Stated complaint: post bleeding Time Seen by Provider: 07/27/23 01:13 Source: patient, EMS and RN notes reviewed Mode of arrival: ambulatory Limitations: no limitations History of Present Illness HPI narrative: Patient is a 38-year-old, , history of 2 miscarriages, 1st was relatively uneventful aside from mild preeclampsia. She had severe preeclampsia with this and was delivered at about 34 weeks on July 10. Delivery was otherwise uneventful, she has been maintained on nifedipine, blood pressures have been well controlled. She has had some problems with some headaches, and notes that she has had continued bleeding since delivery which is improved but has not slowed considerably. Tonight at around midnight she passed 2 large clots and then noted continued bleeding after that. She has not had lightheadedness or fainting. She is not anticoagulated. Related Data Home Medications Medication Instructions Recorded Confirmed docosahexaenoic acid 200 mg 1 mg PO QDAY 12/12/22 07/15/23 capsule ( DHA) Previous Rx's Medication Instructions Recorded docusate sodium 100 mg capsule 100 mg PO DAILY PRN #30 caps 07/13/23 ibuprofen 600 mg tablet 600 mg PO Q6H PRN #30 tabs 07/13/23 nifedipine 30 mg tablet,extended 60 mg (2 x 30 mg) PO BID #60 tabs 07/13/23 release 24 hr labetalol 100 mg tablet 100 mg PO TID #90 tabs 07/15/23 Allergies Allergy/AdvReac Type Severity Reaction Status Date / Time No Known Drug Allergies Allergy Verified 07/07/23 15:36 Review of Systems Status of ROS: Reports: 6 or more systems reviewed and unremarkable except as noted in History and below [facility] Medical History History of abnormal cervical Pap smear (2011) ?Z87.42 - Personal history of other diseases of the female genital tract (ICD-10) 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 - Recurrent loss (ICD-10) History of difficulty in concentrating ?Z87.898 - Personal history of other specified conditions (ICD-10) Second degree perineal laceration (07/11/21) ?O70.1 - Second degree perineal laceration during delivery (ICD-10) Surgical History History of wisdom tooth extraction (~2001) ?K08.409 - Partial loss of teeth, unspecified cause, unspecified class (ICD-10) History of placement of ear tubes (1985) ?Z96.22 - Myringotomy tube(s) status (ICD-10) Normal vaginal delivery (07/11/21) ?O80 - Encounter for full-term uncomplicated delivery (ICD-10) Family History Father High blood pressure History of pacemaker Melanoma Arachnoid cyst Mother High blood pressure Aunt Brain cancer Melanoma Aunt Schizophrenia Melanoma Aunt Multiple sclerosis Social History Narrative: , department of natural resources officer, 1 child, currently Lifetime nonsmoker Currently not drinking, usually 4 drinks a week No drug use no regular exercise History of blood transfusion: No. SOCIAL HISTORY: Occupation: Teacher. Marital status: . Pentecostalism/cultural needs: no. Chemical or radiation exposure: no. Pre- tobacco use: no. Pre- alcohol use: 1 per day. Current tobacco use: no. Current alcohol use: no. Recreational drug use: no. Dietary restrictions: no. Blood transfusion acceptable in an emergency: yes. FAMILY AND GENETIC HISTORY: Father with arachnoid cyst. Nephew with hydrocephalus PSYCHOSOCIAL HISTORY: History of depression or currently depressed: no. Current or past physical, emotional, or sexual mistreatment: no. Problems that will make it hard to make it to appointments: no. What is your current living situation?: I presently have a place to live Problems where you live: no known problems In the past 12 months, utilities in danger of being shut off: no In past 12 months, lack of transportation kept you from medical appts, meetings, work, or getting things needed for daily living: no In the past 12 mos, have been you worried that your food would run out before you had money to buy more?: never true In the past 12 mos, the food you bought just didn't last and you didn't have money to buy more?: never true Smoking Status: Never smoker How often do you have a drink containing alcohol: never AUDIT-C Alcohol total score: 0 Non-prescribed substance use: denies use How often does anyone, including family, friends and others, physically hurt you: never How often does anyone, including family, friends and others, insult or talk down to you: never How often does anyone, including family, friends and others, threaten you with harm: never How often does anyone, including family, friends and others, scream or curse at you: never Little interest or pleasure in doing things: not at all Feeling down, depressed, or hopeless: not at all Exam Narrative: Exam Narrative: Vital signs as noted above. In general, an alert, well-appearing patient. Head: Normocephalic, atraumatic. Eyes: Pupils are equal reactive. Extraocular movements are full. Conjunctivae are normal. ENT: Mucous membranes are moist. Delete Neck: Supple without lymphadenopathy. Heart: Borderline tachycardic, regular. Lungs: Clear bilaterally. No increased work of breathing, crackles or wheezes. Abdomen: Soft and nontender. No organomegaly. Pelvic: There was about a half clot of clotted blood in the vaginal vault. There were a couple of tbsp of liquid blood which I suctioned out. The cervix is visualized, it appears closed, no visible products of conception within the cervix. No significant active bleeding at this time. Extremities: Well perfused. No edema. No calf tenderness. Pulses intact. Neurologic: Patient is alert and oriented to person and place. Speech is fluent. Face is symmetric. Moves all extremities equally. Affect: Normal. Skin: Warm and dry. Well perfused. Const: Vital Signs, click to edit/add: Vital Signs - 24 hr 07/27/23 01:34 07/27/23 01:34 07/27/23 01:46 Temperature 98.1 F Pulse Rate 91 88 Pulse Rate [Pulse Oximeter] 97 Respiratory Rate 18 16 Blood Pressure 133/103 H 121/83 Blood Pressure [Le ft Upper Arm] 144/96 H Pulse Oximetry 98 96 97 Oxygen Delivery Me thod Room Air 07/27/23 01:47 07/27/23 02:01 07/27/23 02:02 Temperature Pulse Rate 87 79 77 Pulse Rate [Pulse Oximeter] Respiratory Rate Blood Pressure 115/80 Blood Pressure [Le ft Upper Arm] Pulse Oximetry 96 96 96 Oxygen Delivery Me thod 07/27/23 02:16 07/27/23 02:17 07/27/23 02:59 Temperature Pulse Rate 78 80 81 Pulse Rate [Pulse Oximeter] Respiratory Rate Blood Pressure 113/81 125/85 Blood Pressure [Le ft Upper Arm] Pulse Oximetry 96 97 94 Oxygen Delivery Me thod 07/27/23 03:00 Temperature Pulse Rate 76 Pulse Rate [Pulse Oximeter] Respiratory Rate Blood Pressure Blood Pressure [Le ft Upper Arm] Pulse Oximetry 94 Oxygen Delivery Me thod Documenting provider has reviewed patient's vital signs: yes Course Course ED Course: An IV was placed on arrival, blood drawn for CBC, metabolic panel, type and screen. I consulted with OB Gyne, Dr. Lindsey, who recommended ultrasound. We discussed TXA and decided to proceed with that. Right now she is not having significant bleeding, will see how imaging looks to evaluate for possible retained placenta. She declines need for anything for pain. Patient's pulse came down to 70s and 80s without intervention. Blood pressure currently 113/81. Hemoglobin was 13, 14.1 at last check a week ago. Metabolic panel unremarkable. Blood type A positive. Preliminary read on the ultrasound is of retained placenta in the fundus. She did have recurrent bleeding although not heavy at this time. Discussed again with Dr. Lindsey, who plans come in for D&C. Patient remained hemodynamically stable. Transferred to OR with Dr. Lindsey. Vital Signs Vital signs: Initial Vital Signs Temperature 98.1 F 07/27/23 01:34 Temperature Source Temporal Artery Scan 07/27/23 01:34 Pulse Rate 91 07/27/23 01:34 Respiratory Rate 18 07/27/23 01:34 Blood Pressure 133/103 H 07/27/23 01:34 Blood Pressure Mean 113 H 07/27/23 01:34 Blood Pressure Position Sitting 07/27/23 01:34 Pulse Oximetry 98 07/27/23 01:34 Oxygen Delivery Method Room Air 07/27/23 01:34 Vital Signs Temperature 98.1 F 07/27/23 01:34 Pulse Rate 91 07/27/23 01:34 Respiratory Rate 18 07/27/23 01:34 Blood Pressure 133/103 H 07/27/23 01:34 Pulse Oximetry 98 07/27/23 01:34 Oxygen Delivery Method Room Air 07/27/23 01:34 Temperature 98.1 F 07/27/23 01:34 Pulse Rate 76 07/27/23 03:00 Respiratory Rate 16 07/27/23 01:46 Blood Pressure 125/85 07/27/23 02:59 Pulse Oximetry 94 07/27/23 03:00 Oxygen Delivery Method Room Air 07/27/23 01:34 Medications Administered Medications: Generic Name Dose Route Start Last Admin Trade Name Freq PRN Reason Stop Dose Admin Doxycycline Hyclate 200 mg 07/27/23 03:44 07/27/23 03:53 Doxycycline Hyclate 100 Mg PO 07/27/23 03:45 200 mg ONCE ONE Administration Discontinued Medications Generic Name Dose Route Start Last Admin Trade Name Freq PRN Reason Stop Dose Admin Tranexamic Acid 1,000 mg 07/27/23 01:38 07/27/23 01:43 Tranexamic Acid 100 Mg/Ml Inj IV 07/27/23 01:39 1,000 mg ONCE ONE Administration Medical Decision Making Lab Data Labs: Lab Results 07/27/23 Range/Units 01:25 WBC 6.75 (4.50-11.00) K/uL RBC 4.04 (4.00-5.20) m/uL Hgb 13.0 (12.0-16.0) gm/dL Hct 38.2 (33.0-51.0) % MCV 95 (80-100) fL MCH 32 (26-34) pg MCHC 34 (32-36) gm/dL RDW Coeff of Meron 12.4 (11.5-15.5) % Plt Count 254 (140-440) K/uL Neut % (Auto) 55.4 (42.0-72.0) % Lymph % (Auto) 33.8 (20-44) % [place] % (Auto) 7.0 (0.0-11.0) % Eos % (Auto) 2.5 (0.0-7.0) % Baso % (Auto) 0.3 (0.0-3.0) % Neut # (Auto) 3.74 (1.7-7.0) K/uL Lymph # (Auto) 2.28 (0.90-2.90) K/uL [place] # (Auto) 0.50 (0.00-0.90) K/UL Eos # (Auto) 0.17 (0.00-0.50) K/uL Baso # (Auto) 0.02 (0.00-0.30) K/uL Abs Immat Gran (auto) 0.07 (0.00-0.30) K/uL Imm/Tot Granulo (auto) 1.0 % Sodium 137 (135-149) mmol/L Potassium 3.9 (3.6-5.1) mmol/L Chloride 108 (96-114) mmol/L Carbon Dioxide 23 (20-32) mmol/L Anion Gap 6 L (7-15) mEq/L BUN 19 (5-24) mg/dL Creatinine 0.7 (0.5-1.5) mg/dL Estimated Creat Clear 109.92 Estimated GFR 113 ml/min Glucose 106 (60-115) mg/dL Calcium 9.2 (8.4-10.6) mg/dL Blood Type A Positive Antibody Screen NEGATIVE
[2023-07-27] MEDS: TRANEXAMIC ACID 100 MG/ML INJ 1000 MG IV (01:43)
[2023-07-27 01:46] LABS: Chloride* 108 mmol/L (96-114); Sodium* 137 mmol/L (135-149)
[2023-07-27 01:47] LABS: Potassium* 3.9 mmol/L (3.6-5.1)
[2023-07-27 01:49] LABS: Anion Gap 6 mEq/L (7-15); Carbon Dioxide* 23 mmol/L (20-32); Creatinine* 0.7 mg/dL (0.5-1.5); Est. Creatinine Clearance* 109.92; Estimated Glomerular Filt Rate 113 ml/min
[2023-07-27 01:50] LABS: Blood Urea Nitrogen* 19 mg/dL (5-24); Calcium* 9.2 mg/dL (8.4-10.6); Glucose* 106 mg/dL (60-115)
[2023-07-27] MEDS: DOXYCYCLINE HYCLATE 100 MG 200 MG PO (03:53)
[2023-07-27] MEDS: LACTATED RINGERS 1000 ML 1,000 ML 100 ML IV ×3 (04:02→06:14)
--- NOTE | 2023-07-27 04:16 | W.ANESCHARGE ---
Anesthesia Charges Start Date/Time Anesthesia Start Date: 07/27/23 Anesthesia Start Time: 04:02 Stop Date/Time Anesthesia Stop Date: 07/27/23
[2023-07-27] MEDS: LIDOCAINE 1 % PF 30 ML INJECTION (04:23)
[2023-07-27] MEDS: miSOPROStoL 800 MCG/4 TABLET PR (04:42)
[2023-07-27 05:36] LABS: Basophils Absolute Auto 0.03 K/uL (0.00-0.30); Basophils Percent Auto 0.5 % (0.0-3.0); Eosinophils Percent Auto 3.3 % (0.0-7.0); Hematocrit 28.4 % (33.0-51.0); Hemoglobin* 9.5 gm/dL (12.0-16.0); Immature Granulocytes Abs Auto 0.02 K/uL (0.00-0.30); Immature Granulocytes Pct Auto 0.3 %; Lymphocytes Absolute Auto 2.02 K/uL (0.90-2.90); Lymphocytes Percent Auto 32.8 % (20-44); Mean Corpuscular HGB Conc 34 gm/dL (32-36); Mean Corpuscular Hemoglobin 33 pg (26-34); Mean Corpuscular Volume 98 fL (80-100); Monocytes Percent Auto 4.4 % (0.0-11.0); Neutrophils Absolute Auto 3.61 K/uL (1.7-7.0); Neutrophils Percent Auto 58.7 % (42.0-72.0); Platelet Count* 286 K/uL (140-440); RDW Coefficient of Variation % 12.8 % (11.5-15.5); Red Blood Count 2.91 m/uL (4.00-5.20); Slide Review Reflex No; White Blood Count* 6.15 K/uL (4.50-11.00)
[2023-07-27 06:00] LABS: Prothrombin Time 14.9 Seconds
[2023-07-27 06:01] LABS: Partial Thromboplastin Time* 26 Seconds (23-33)
[2023-07-27 06:02] LABS: Fibrinogen* 301 mg/dL (200-450)
[2023-07-27] MEDS: BUPIVACAINE 0.25% 30 ML INJECTION (06:50)
--- NOTE | 2023-07-27 07:15 | W.ANESCHARGE ---
Anesthesia Charges Start Date/Time Anesthesia Start Date: 07/27/23 Anesthesia Start Time: 04:02 Stop Date/Time Anesthesia Stop Date: 07/27/23 Anesthesia Stop Time: 07:18 Summary Emergency: [facility] [employer]
--- NOTE | 2023-07-27 07:21 | SUR.OPER ---
BAKIR 175ML IN @0516, FLUID OUT @ 0603, FLUID BACK IN @ 0608 150ML
--- NOTE | 2023-07-27 07:27 | P.GYNPRC_ITS ---
Procedure Note Date of procedure: 07/27/23 Pre-op diagnosis: Placenta at 2 weeks Post-op diagnosis: other (Retained placenta at 2 weeks , hemorrhage) Procedure: Suction uterine curettage under ultrasound guidance Placement of Laura intrauterine vacuum device, followed by removal Placement of Bakri balloon Diagnostic laparoscopy Anesthesia: GETA and MAC Complications: Hemorrhage of 1000 mL Laura intrauterine vacuum device was ineffective, requiring removal and placement of Bakri device Intraoperative ultrasound suggested uterine perforation, requiring diagnostic laparoscopy Surgeon: Nolvia Lindsey MD Tour Director: Aleah Leonard Estimated blood loss (mL): 1,000 IV fluids (mL): 2,600 Urine Output (mL): 150 Pathology: specimen obtained, sent to pathology (retained products of concept ion) Condition: stable Disposition: PACU Findings: 1. Upon pelvic exam under anesthesia, the cervix was dilated to at least 10 [place]. The uterus was approximately 12 week size. It was difficult to determine the amount of products of conception that were removed due to the amount of bleeding, but it was not a large amount. Vagina exhibited a well- approximated second-degree laceration that was healing well. 2. Upon laparoscopy, survey of the upper abdomen revealed a normal appearance to the inferior edge of the liver, gallbladder and stomach. Bowels were grossly normal appearance. There was minimal blood in the cul-de-sac. Survey of the pelvis revealed no perforation of the uterus, and slightly retroverted position with the Bakri balloon in place. Bilateral tubes and ovaries were normal in appearance. The bladder reflection was normal in appearance. Procedure Description: marty was taken to the operating with IV running. She had received a single oral dose of doxycycline in preoperative prophylaxis. She was placed in dorsal lithotomy position. Monitored anesthesia care was administered. She was prepped and draped in the usual sterile fashion. Her bladder was straight catheterized initially. Exam under anesthesia was performed for the above-noted findings. Speculum was inserted. Cervix was grasped along its anterior lip, 1st with a single-tooth tenaculum and then ring forcep. Paracervical block was performed with a total o f 10 mL of 1% lidocaine. The cervix was serially dilated to 12 [place]. A size 12 rigid suction cannula was then passed through the cervix to the uterine fundus. Suction was applied, and the suction cannula was withdrawn along the path of insertion. However, bleeding increased during this time, despite the presence of some products of conception in the cannula. The size 12 cannula was replaced with a rigid size 10 cannula. Numerous more passes were made, without decrease in bleeding. Sharp curettage was performed, revealing an irregular texture near the anterior fundus. Bedside ultrasound was performed, showing no definite retained products of conception. Patient had received a g of TXA prior to arrival in operating room, and was given 800 mcg of rectal misoprostol and a dose of Hemabate intraoperatively. Given the amount of bleeding, decision was made to proceed with placement of Laura intrauterine vacuum device. A single dose of 1 g of IV cefazolin was given in prophylaxis. The device was collapsed in place through the cervix into the uterine cavity. The intravaginal balloon was inflated with saline. Suction of 90 mmHg was applied. Despite this, bleeding persisted over the course of the next approximately 10 minutes. Since bleeding did not appear to be decreasing, decision was made to discontinue the data. The suction was released, and the saline within the vaginal balloon was deflated. Brisk bleeding ensued. Next, a Bakri balloon was placed through the cervix into the uterine cavity. Was initially inflated to 175 mL, which resulted in immediate cessation of bleeding. Again, bedside ultrasound was performed, showing no definitive retained products of conception or flow to the endometrium, but raising a concern for perforation at the fundus given the position of the tip of the Bakri balloon. Given this concern, decision was then made to perform diagnostic laparoscopy. Matos catheter was placed. General anesthesia was administered. She was prepped and draped in the usual sterile fashion. Patient's legs were placed in neutral position. Attention was turned to patient's abdomen. The infraumbilical area was infiltrated with small amount of Marcaine. An infraumbilical incision was made with a scalpel and carried through to the underlying layer of fascia with a hemostat. The 5 mm Fios Kii trocar was assembled with laparoscope within, and insufflator attached. While tenting up the abdomen manually, the trocar was passed through the anterior abdominal wall into the peritoneal cavity. Trocar was removed. Pneumoperitoneum was achieved. A 2nd 5 mm trocar was placed in the patient's left lower quadrants, after infiltrating with a small amount of Marcaine, assuring large vessels were out of the way, under direct visualization and without complication. Survey of abdomen and pelvis revealed the above-noted findings. No perforation was noted. Care was taken to examine the entire anterior and posterior surfaces of the uterus. The pneumoperitoneum was released after all instruments were removed from the ports. The ports removed. The skin of each port site was closed with a subcuticular stitch of 4-0 Monocryl. Surgical glue was applied above this. Patient experienced some intraoperative hypertension, which was managed with fluid bolus. She was taken recovery area in stable condition.
[2023-07-27] MEDS: MEPERIDINE 25 MG/ML INJ 12.5 MG IVP (07:37)
--- NOTE | 2023-07-27 07:50 | SUR.PHASEI ---
Pt has Nikolaii in place noting small amount bloody drainage in bag kim catheter in place also small amount yellow urine
--- NOTE | 2023-07-27 08:12 | PM.EN ---
Chart Event Note Time Seen by Provider: 16:30 Date Seen: 07/27/23 Chart Event Note: Presented to bedside for assessment of vaginal bleeding and removal of Bakri. She has been feeling well with minimal pain. Minimal bleeding vaginal bleeding since placement of Bakri balloon. Output in Bakri bag is approximately 20 cc. Vaginal packing was removed and showed scant bleeding. Bakri bag was decompressed and 50 mL increments. Fundal massage performed after Bakri was replaced but still in utero. No bleeding expressed with fundal massage. Bakri balloon was removed after no bleeding expressed. No complications. Physical exam: General: No acute distress Psych: Alert and oriented x3, full affect HEENT: Normocephalic, atraumatic Lungs: Unlabored breathing Abdomen: Soft, no tenderness, rebound, or guarding. Fundus is firm 3 cm below umbilicus INCISION: Clean, dry and intact without tenderness, erythema, induration, or drainage x 2 Neuro: No focal deficit. Mentating appropriately Pelvic exam: Mons normal, clitoris normal, urethral meatus normal. Labia minora and majora normal in appearance bilaterally. Perineum and anus normal appearance. Vaginal introitus with mild erythema in the area around the Bakri balloon cath. Bimanual exam reveals uterus to firm, nontender, mobile, anteverted, of normal size and texture. No palpable adnexal masses or tenderness. Labs: - hgb: 13.0 --> 9.5 --> 9.5 - Coags wnl Plan: - Will continue pad count Q2H - UOP: 1.07 cc/kg/hr. Will continue stric I/O overnight. She can d/c Matos cath in 4 hr if able to ambulate without issues - Will advance diet as tolerated - She can d/c one of her IVs - Will continue 2 g of Cefazolin Q6H for 24hrs total - Pain: Acetaminophen, Ibuprofen, and oxycodone - DVT prophylaxis: SCDs when not ambulating. - Anticipated discharge: Tomorrow on 07/27 - Postop follow up: 2 weeks postop
[2023-07-27 09:13] LABS: Basophils Absolute Auto 0.01 K/uL (0.00-0.30); Basophils Percent Auto 0.1 % (0.0-3.0); Eosinophils Absolute Auto 0.02 K/uL (0.00-0.50); Eosinophils Percent Auto 0.2 % (0.0-7.0); Hematocrit 28.7 % (33.0-51.0); Hemoglobin* 9.5 gm/dL (12.0-16.0); Immature Granulocytes Abs Auto 0.03 K/uL (0.00-0.30); Immature Granulocytes Pct Auto 0.3 %; Lymphocytes Percent Auto 7.5 % (20-44); Mean Corpuscular HGB Conc 33 gm/dL (32-36); Mean Corpuscular Hemoglobin 32 pg (26-34); Mean Corpuscular Volume 97 fL (80-100); Monocytes Percent Auto 1.5 % (0.0-11.0); Neutrophils Percent Auto 90.4 % (42.0-72.0); Platelet Count* 251 K/uL (140-440); RDW Coefficient of Variation % 12.8 % (11.5-15.5); Red Blood Count 2.97 m/uL (4.00-5.20); White Blood Count* 9.49 K/uL (4.50-11.00)
[2023-07-27 09:19] LABS: Slide Review Reflex No
[2023-07-27 09:43] LABS: Fibrinogen* 307 mg/dL (200-450); Partial Thromboplastin Time* 25 Seconds (23-33)
[2023-07-27 09:44] LABS: INR 1.04 (0.91-1.10); Prothrombin Time 14.2 Seconds
[2023-07-27] MEDS: LACTATED RINGERS 1000 ML 1,000 ML 125 ML IV ×2 (09:55→22:51)
[2023-07-27] MEDS: KETOROLAC 15 MG/ML inj IVP (10:34)
[2023-07-27] MEDS: CEFAZOLIN 2 GM INJ IVP ×3 (11:06→22:41)
[2023-07-27] MEDS: ACETAMINOPHEN 325 MG TABLET PO (14:16)
[2023-07-27] MEDS: OXYCODONE 5 MG TABLET PO (17:08)
[2023-07-27] MEDS: IBUPROFEN 600 MG TABLET PO ×2 (17:10→22:50)
[2023-07-27] MEDS: ACETAMINOPHEN 325 MG TABLET 650 MG PO (20:21)
[2023-07-27] MEDS: SENNOSIDES 1 TAB TABLET PO (22:17)
[2023-07-28] VITALS (14 sets, daily range): BP systolic 101–127; BP diastolic 62–80; PULSE 83–103; RESP 16–20; TEMP 36.8–37.3; O2SAT 96–98
[2023-07-28] MEDS: ACETAMINOPHEN 325 MG TABLET 650 MG PO ×3 (01:54→14:34)
[2023-07-28] MEDS: IBUPROFEN 600 MG TABLET PO ×2 (05:06→10:56)
[2023-07-28] MEDS: CEFAZOLIN 2 GM INJ IVP (05:06)
[2023-07-28 06:28] LABS: Basophils Percent Auto 0.2 % (0.0-3.0); Eosinophils Percent Auto 2.9 % (0.0-7.0); Hematocrit 18.3 % (33.0-51.0); Immature Granulocytes Pct Auto 0.2 %; Lymphocytes Percent Auto 30.4 % (20-44); Mean Corpuscular HGB Conc 33 gm/dL (32-36); Mean Corpuscular Hemoglobin 33 pg (26-34); Mean Corpuscular Volume 98 fL (80-100); Neutrophils Percent Auto 60.3 % (42.0-72.0); Platelet Count* 171 K/uL (140-440); RDW Coefficient of Variation % 13.1 % (11.5-15.5); Red Blood Count 1.87 m/uL (4.00-5.20); White Blood Count* 4.14 K/uL (4.50-11.00)
[2023-07-28 06:34] LABS: Hemoglobin* 6.1 gm/dL (12.0-16.0)
[2023-07-28 06:35] LABS: Slide Review Reflex No
[2023-07-28 07:02] LABS: Basophils Percent Auto 0.5 % (0.0-3.0); Eosinophils Percent Auto 3.4 % (0.0-7.0); Hematocrit 18.9 % (33.0-51.0); Immature Granulocytes Pct Auto 0.5 %; Lymphocytes Percent Auto 32.3 % (20-44); Mean Corpuscular HGB Conc 33 gm/dL (32-36); Mean Corpuscular Hemoglobin 33 pg (26-34); Mean Corpuscular Volume 98 fL (80-100); Monocytes Percent Auto 5.2 % (0.0-11.0); Neutrophils Percent Auto 58.1 % (42.0-72.0); Platelet Count* 160 K/uL (140-440); RDW Coefficient of Variation % 13.1 % (11.5-15.5); Red Blood Count 1.92 m/uL (4.00-5.20)
--- NOTE | 2023-07-28 07:08 | P.EN_ITS ---
Chart Event Note Time Seen by Provider: 06:45 Date Seen: 07/28/23 Chart Event Note: AM labs returned with Hgb of 6.1. Plt 170. I presented to evaluate the patient. Patient is comfortable in bed and . She reports she feels well. She's been able to eat without n/v. She's ambulated and has been able to void freely. She does not report increased abdominal pain or vaginal bleeding. She reports that her only symptom is fatigue. VS wnl. Excellent UOP throughout her postoperative course. Physical exam: General: No acute distress Psych: Alert and oriented x4, full affect HEENT: Normocephalic, atraumatic. Pale conjunctival pallor Neck: No cervical adenopathy, no thyromegaly Heart: Regular rate and rhythm, no murmur rub or gallop Lungs: Clear to auscultation bilaterally Abdomen: Normoactive bowel sounds, soft, no tenderness, rebound, or guarding. Uterus firm 3-4cm below umbilicus. No bleeding expressed with fundal massage Incision: Appropriately and very minimal tender to palpation. Clean, dry, and intact. No erythema, induration, or abnormal discharge/breakdown x2 Skin: No lesions or rashes Breasts: Deferred Lower extremities: No edema or erythema Pelvic exam: Small amount of blood on pad. Patient report she has not changed her pad since 11pm. Her last pad also had small amount of blood. Assessment and Plan Postoperative/post delivery Review: - Admitted for: Delayed hemorrhage from retained placenta - Surgical procedure: Ultrasound-guided suction and curettage. Exploratory laparoscopy - Skin incision: 2 5 mm laparoscopic port sites - Closure: Sutures - Estimated blood loss: 1000 mL - Intraoperative Complications: Concern for uterine perforation with blocked tube balloon requiring exploratory laparoscopy Acute blood loss anemia - EBL 1,000 cc intraoperative, 20 cc in bakri balloon at removal - VSS and within normal limits - Physical exam concerning for pale conjunctival pallor, otherwise appropriate for her postoperative course - Urine output: 1.39 cc/kg/hr. Last void at around 0530 with 300 cc of output. - Preop H/H: 13.0/38.2 - Postop H/H: 9.5/28.4 --> 9.5/28.4 --> 6.1/18.3 - We discussed repeat stat labs to reaffirm her large drop in hgb but will transfuse 1u of pRBC in the mean time. Reassured patient that I do not thing this is due to new onset bleeding. This is likely all from the initial hemorrhage and it took time for her body to equilibrate. She already has 2u typed and crossed. Will transfuse 1 now. Discussed with Ada that I expect 1gm/dL increase in hgb for every unit of blood transfuse. Our goal is to get her to above 7 gm/dL. She reports she would accept a blood transfusion understanding the risks of a 1/200,000 risk of Hepatitis and 1/2,000,000 risk of HIV as well as the risk of having an allergic reaction to the blood products. She further understands that most reaction is typically mild. However, there are severe reaction that are rare including respiratory distress and necessitating ICU- level care. Postoperative care: - Diet: Advance as tolerated - Fluid: Encourage oral intake - Activity: Encourage ambulation and incentive spirometry - Pain: Acetaminophen, Ibuprofen, and oxycodone - DVT prophylaxis: SCDs Dispo: Patient strongly desires discharge today. Discussed with patient that since we are transfusing blood early in the day, she might be able to go home later today if her hgb rise appropriately, there is reassurance that her uterine bleeding is under control and she is asymptomatic. She is grateful for the care and has no further questions. Case discussed with Dr. Lindsey who is the on coming physician and her surgeon at sign out.
[2023-07-28 07:09] LABS: Hemoglobin* 6.3 gm/dL (12.0-16.0); Slide Review Reflex No
[2023-07-28] MEDS: diphenhydrAMINE 25 MG CAPSULE PO (08:07)
--- NOTE | 2023-07-28 11:29 | PC.NURSE ---
Clarification of TAR vitals during blood transfusion of [id number]. Transfusion vitals obtained at 0831 were entered at incorrect time. Correct time was 0931. Transfusion vitals obtained at 0916 were incorrectly timed and done at 1006.
[2023-07-28 14:10] LABS: Basophils Absolute Auto 0.02 K/uL (0.00-0.30); Basophils Percent Auto 0.4 % (0.0-3.0); Eosinophils Absolute Auto 0.23 K/uL (0.00-0.50); Eosinophils Percent Auto 4.7 % (0.0-7.0); Hematocrit 27.8 % (33.0-51.0); Hemoglobin* 9.1 gm/dL (12.0-16.0); Immature Granulocytes Abs Auto 0.05 K/uL (0.00-0.30); Lymphocytes Absolute Auto 1.72 K/uL (0.90-2.90); Mean Corpuscular HGB Conc 33 gm/dL (32-36); Mean Corpuscular Hemoglobin 30 pg (26-34); Mean Corpuscular Volume 92 fL (80-100); Monocytes Percent Auto 5.9 % (0.0-11.0); Platelet Count* 184 K/uL (140-440); RDW Coefficient of Variation % 16.5 % (11.5-15.5); Red Blood Count 3.01 m/uL (4.00-5.20); White Blood Count* 4.91 K/uL (4.50-11.00)
[2023-07-28 14:18] LABS: Slide Review Reflex No
--- NOTE | 2023-07-28 15:03 | P.DS_ITS ---
DS: Providers Provider Date Seen: 07/28/23 Primary care physician: Little Simpson MD Attending Physician on discharge: Nolvia Lindsey MD Date of Discharge: 07/28/23 DS: Diagnosis Discharge Diagnosis (1) Retained products of conception: Status: Acute (2) hemorrhage, delayed (> 24 hrs): Status: Acute (3) Anemia associated with acute blood loss: Status: Acute (4) Pre-eclampsia, severe, delivered: Status: Acute [employer] [facility]-Discharge Summary Hospital Course Hospital Course Narrative: Patient is a 38 year old woman admitted on 07/27/2023 for suction uterine curettage. Indication for surgery: Suspected retained placenta on ultrasound images. Intraoperative findings were notable for uterus approximately 12 week size. Brisk bleeding developed with initiation of uterine curettage. No more than moderate products of conception were obtained, along with abundant clot. Continuing hemorrhage led to use of multiple uterotonics, followed by placement of Laura intrauterine vacuum, which did not stop the hemorrhage. This was then removed, and a Bakri balloon was placed. This was successful at stopping hemorrhage. Findings on intraoperative ultrasound then suggested uterine perforation. Diagnostic laparoscopy was performed, showing no uterine perforation and normal pelvic anatomy. She was hypertensive and tachycardic in the operating room. Vital since normalized shortly after leaving the operating room. She was on antihypertensives prior to readmission, but has not been using them at all during this hospital stay. She is remained normotensive since leaving the operating room. She had Bakri balloon in place for approximately 12 hours, and received ce fazolin in prophylaxis against infection every 6 hours while this was in place. In addition, she received doxycycline prior to suction curettage. Bakri balloon was removed on the afternoon of 07/27/2023, and she had no recurrence of heavy bleeding. Today, on postoperative day 1, she was noted to have hemoglobin of 6.1. She went on to have transfusion of 2 units of packed red cells. Repeat hemoglobin is 9.1. Vitals have been stable. She has remained afebrile. She reports that pain is well managed. She has been able to ambulate Without difficulty. She is tolerating regular diet. She is passing flatus. Kim catheter has been removed, and she is voiding without difficulty. Time Spent with Patient Time attestation: Total time spent providing and/or coordinating discharge services: [employer] [employer] [facility] - Exam Physical Exam: Vital signs: Temp Pulse Resp BP Pulse Ox O2 Del Method 98.5 F 83 16 124/80 97 Room Air 07/28/23 12:59 07/28/23 12:59 07/28/23 12:59 07/28/23 12:59 07/28/23 12:59 07/28/23 12:59 Narrative: General: Pleasant, no acute distress Heart: Regular rate and rhythm, no murmur or gallop Lungs: Clear to auscultation bilaterally Abdomen: Soft, nontender, not distended, no rebound or guarding. Laparoscopic port sites are clean, dry, and intact. Mild tenderness to deep palpation in the region of the uterine fundus. Uterus continues to be well below the umbilicus, a few cm above the pubic symphysis. Lower extremities: No edema or erythema [employer] - DS: Data Data Completed and Pending Completed studies during hospitalization: Procedures Delivery of Products of Conception, External Approach (07/10/23) Drainage of Amniotic Fluid, Therapeutic from Products of Conception, Via Natural or Artificial Opening (07/10/23) Introduction of Other Therapeutic Substance into Mouth and Pharynx, External Approach (07/10/23) Repair Perineum Muscle, Open Approach (07/10/23) Labs on day of discharge: Labs from last 24 hours 07/28/23 07/28/23 07/28/23 14:05 06:56 06:15 WBC 4.91 4.40 L 4.14 L RBC 3.01 L 1.92 L 1.87 L Hgb 9.1 L 6.3 L* 6.1 L* Hct 27.8 L 18.9 L 18.3 L MCV 92 98 98 MCH 30 33 33 MCHC 33 33 33 RDW Coeff of Meron 16.5 H 13.1 13.1 Plt Count 184 160 171 Neut % (Auto) 53.0 58.1 60.3 Lymph % (Auto) 35.0 32.3 30.4 Robertson % (Auto) 5.9 5.2 6.0 Eos % (Auto) 4.7 3.4 2.9 Baso % (Auto) 0.4 0.5 0.2 Neut # (Auto) 2.60 2.60 2.50 Lymph # (Auto) 1.72 1.40 1.30 Robertson # (Auto) 0.30 0.20 0.20 Eos # (Auto) 0.23 0.10 0.10 Baso # (Auto) 0.02 0.00 0.00 Abs Immat Gran (auto) 0.05 0.00 0.00 Imm/Tot Granulo (auto) 1.0 0.5 0.2 Blood Type Antibody Screen Crossmatch ([facility]) 07/27/23 01:25 WBC RBC Hgb Hct MCV MCH MCHC RDW Coeff of Meron Plt Count Neut % (Auto) Lymph % (Auto) Robertson % (Auto) Eos % (Auto) Baso % (Auto) Neut # (Auto) Lymph # (Auto) Robertson # (Auto) Eos # (Auto) Baso # (Auto) Abs Immat Gran (auto) Imm/Tot Granulo (auto) Blood Type A Positive Antibody Screen NEGATIVE Crossmatch ([facility]) See Detail Procedures Procedures: Procedures Operation Date: 07/27/23 04:10 Actual Procedure Side Surgeon p Dilation and CURETTAGE WITH ULTRA SOUND GUIDENCE PLACEMENT OF LAURA AND REMOVAL OF LAURA, PLACEMENT OF BAKRI Nolvia Lindsey MD s Diagnostic Laparoscopy Nolvia Lindsey MD Discharge Plan Discharge Disposition: Home w/ Parent or Adult Discharging Surgeon: Nolvia Lindsey Follow-Up Appointment: 2-[address] Lindsey Prescriptions: New acetaminophen 325 mg Tablet 650 mg PO Q6H PRNQty: 0 0RF ibuprofen 600 mg Tablet 600 mg PO Q6H PRNQty: 0 0RF oxycodone 5 mg Tablet 5 mg PO Q4H PRNQty: 20 0RF polyethylene glycol 3350 [Miralax] 17 gram/dose powder 17 g PO DAILY PRNQty: 119 0RF ferrous sulfate 325 mg (65 mg iron) tablet 650 mg PO Q OTHER DAY Qty: 30 0RF Continued DHA 200 mg capsule 1 mg PO QDAY docusate sodium 100 mg Capsule 100 mg PO DAILY PRNQty: 30 0RF ibuprofen 600 mg Tablet 600 mg PO Q6H PRNQty: 30 0RF Discontinued labetalol 100 mg tablet 100 mg PO TID Qty: 90 0RF nifedipine 30 mg Tablet Extended Release 24hr 60 mg PO BID Qty: 60 0RF Additional Instructions: LAPAROSCOPY POSTOPERATIVE INSTRUCTIONS ACTIVITY You may climb stairs as tolerated. Do not put anything in the vagina for 6 weeks after surgery unless otherwise instructed by your doctor (including tampons, douching, sexual intercourse, etc). No driving for about 2 weeks after surgery, while you are taking narcotic pain medication, or until you feel that you are ready. Practice checking your blind spot and stepping hard on the brake. Avoid sitting or lying in bed for more than 2 hours at a time while you are awake to reduce your risk of blood clots. You may return to work when directed by your physician. Please contact your doctor if you need any return to work letters or medical leave paperwork to be completed. WOUND CARE You will have 2 small incisions on your abdomen. There will be dissolvable stitches under your skin that do not need to be removed. Shower daily after surgery. Clean your incision with mild antibacterial soap and water. Pat your incision dry with a clean towel. No tub baths until wound is completely healed, about 2 weeks. Wash your hands frequently, especially before touching your incision, changing any dressings, after using the restroom, and before eating. PAIN MANAGEMENT Take your oral pain medication as needed. You should be taking Ibuprofen 600mg every 6 hours with 650 mg of Tylenol every 6 hours. You can take these together every six hours or alternate them every 3 hours. You should then take the oxycodone as needed if you have breakthrough pain on top of the Tylenol and Ibuprofen. Some pain medications can cause constipation so you should take a stool softener (i.e. colace/senna) while you are on these medications. You may also take milk of magnesia or Miralax for constipation. WHAT TO EXPECT AT HOME Recovery from surgery is generally 2-4 weeks, but sometimes longer for more strenuous activity. It is normal to be very tired during this time. It is normal to have some drainage or a small amount of vaginal bleeding after surgery which may last up to 6 weeks. You may go home with a kim catheter in your bladder. If so, you will need to follow up for a nurse visit in 7-10 days for removal. You will most likely experience gas pain, abdominal swelling, or shoulder pain for 24-72 hours after surgery. This is from the carbon dioxide gas put into your abdomen to better visualize your organs. A warm shower, heating pad, and/or walking may help. WHEN TO CALL YOUR DOCTOR : Fever (>100.4?F or 38.0?C) or chills. Incision problems such as redness, warmth, swelling, or foul-smelling drainage. Severe nausea or persistent vomiting. Bright red vaginal bleeding (soaking >1 pad/hour) or foul-smelling vaginal drainage. Severe pain not relieved with pain medication. Pain and swelling in your legs, especially if it is only on one side and not the other. Pain with urination, cloudy urine, or foul-smelling urine. Or if you have any other problems or questions. CALL 911 OR GO TO THE EMERGENCY ROOM IF YOU HAVE: Any shortness of breath, difficulty breathing, or chest pain. Continue to check blood pressure twice daily. Call with BP greater than or equal to 150/100, unremitting or severe headache, visual changes, pain underneath your right ribs. [facility] 2-3 days. Follow-up: Little Simpson MD [Primary Care Provider] - Nolvia Lindsey MD [Staff Physician] - Discharge Orders: Discharge Order (Routine); Ordered 07/28/23 Ordered By: Nolvia Lindsey
== END 2023-07-28 16:30 | disposition home or self-care (01) ==
LOC: ED 03:35 → SS 03:58 → OB 13:34
PROVIDERS: Obstetrics & Gynecology; Emergency Provider Emergency Medicine; PCP Family Medicine; Visit Provider Obstetrics & Gynecology
PROC: (CPT 59160; principal; 2023-07-27 04:00)
PROC: (CPT 49320; 2023-07-27 04:00)
DX: O72.0 Third-stage hemorrhage (principal); O72.2 Delayed and secondary postpartum hemorrhage; O90.81 Anemia of the puerperium; D62 Acute posthemorrhagic anemia; O14.15 Severe pre-eclampsia, complicating the puerperium
CPT/HCPCS: 59160; 59899; 49320; 00840; 36415; 36430; 76830; 76856; 76998; 80048; 85025; 85384; 85610; 85730; 86850; 86900; 86901; 86922; 88305; 94761; 99140; 99284; 99285; A9270; J0330; J0665; J0690; J1100; J1885; J2001; J2175; J2371; J2405; J2704; J2710; J3010; J7120; P9016

== ENCOUNTER 2023-08-18 14:49 | Outpatient (CLI) | payer BC, SELFPAY ==
--- NOTE | 2023-08-18 15:00 | US_ITS ---
Patient: CELSO MCELROY Facility:?[facility] Patient ID:?[id number] Site Patient ID:?[id number]. Site :?[id number] Study:?US-Pelvis PELVIS TV-08/18/2023 3:37:08 PM Ordering Physician:MARK HERNÁNDEZ M.D. Final Report: INDICATION: Abnormal vaginal bleeding. TECHNIQUE: Transabdominal and transvaginal ultrasound examination of the pelvis was performed. Grayscale and color Doppler images were obtained. COMPARISON: Pelvic ultrasound 07/27/2023. FINDINGS: Uterus: Measures 4.3 x 7.5 x 6.0 cm. Normal in echotexture. No suspicious masses. Endometrium: 13 mm. Interval resolution of the heterogeneously thickened endometrium. Persistent heterogeneous isoechoic debris with anechoic region measuring approximately 6 mm. Right Ovary: Measures 2.6 x 1.8 x 2.1 cm. No suspicious masses. Normal arterial and venous flow on color Doppler imaging. Left ovary: Measures 2.3 x 0.9 x 1.5 cm. No suspicious masses. Normal arterial and venous flow on color Doppler imaging. Cul-de-sac: No free fluid. IMPRESSION: Persistent heterogeneous isoechoic debris and anechoic structure measuring approximately 6 mm near the uterine fundus. This could represent hemorrhagic blood products, however retained products of conception cannot be excluded. Dictated by Francisco Bennett MD @ 08/18/2023 3:52:41 PM Signed by:?Francisco Bennett MD @08/18/2023 3:52:41 PM (Electronic Signature)
== END 2023-08-18 14:50 | disposition home or self-care (01) ==
PROVIDERS: PCP Family Medicine; Visit Provider Obstetrics & Gynecology
DX: O73.1 Retained portions of placenta and membranes, without hemorrhage (principal); N93.9 Abnormal uterine and vaginal bleeding, unspecified
CPT/HCPCS: 76830; 84702

== ENCOUNTER 2023-09-22 18:20 | Outpatient (CLI) | payer BC, SELFPAY ==
[2023-09-22 22:01] LABS: Chlamydia DNA Amplified* NOT DETECTED (No Detected); GC DNA Amplified* NOT DETECTED (No Detected)
== END 2023-09-22 18:21 | disposition home or self-care (01) ==
LOC: NFLDREF 18:20
PROVIDERS: PCP Family Medicine; Visit Provider Registered Nurse
DX: Z11.3 Encounter for screening for infections with a predominantly sexual mode of transmission (principal); Z32.01 Encounter for pregnancy test, result positive
CPT/HCPCS: 84702; 87491; 87591

== ENCOUNTER 2024-02-22 16:30 | Outpatient (RCR) | payer BC, SELFPAY ==
--- NOTE | 2024-02-09 07:47 | PT.OPDNX ---
PT [facility] Daily Note PT [facility] Daily Note Start: 09/15/23 08:33 Freq: Status: Active Protocol: Document 02/08/24 16:33 ARR (Rec: 02/08/24 17:26 ARR [email or web address]) E-signed By Aranza Augustin DPT PT OP Daily Progress Note Visit Information Note Type Daily Note,Recert/Progress Note Visit Number 1 Running Total Visit Number 8 Insurance Information Insurance Name [employer] Insurance Information/Comments EVAL: 09/14 // Recert 02/07 for 1x every 2-3 wks x 8 visits ( 16-24 wks) POC 1 x 8 Medical Diagnosis Z39.2 encounter for routine follow-up N81.89 other female genital prolapse Treating Diagnosis R27.8 Lack of coordination ( muscle incoordination) R10.2 Pelvic and perineal pain N39.46 Mixed incontinence ( Urge and stress incontinence) Subjective Subjective -Did exercises for first half of time since last session. -Still has tenderness to SIJ area if laying flat or holding little one. Working hard to not thrusting hips forward. Feels uncomfortable and tender . -Had a few sneezes with a tiny leakage that occurred. Home Exercise Home Exercise Comments OTHER: - handout provided Access Code: [email or web address] URL: [email or web address] Date: 10/12/2023 Prepared by: Aranza Augustni Exercises - Sidelying Open Book Thoracic Lumbar Rotation and Extension - 1 x daily - 5-7 x weekly - 6-8 reps - Sidelying Diaphragmatic Breathing - 1 x daily - 5-7 x weekly - 6-8 reps Objective Functional Test Performed & Score INTERNAL ASSESSMENT 02/09/24 Tenderness/pain to palpation/ tone: -Layer 1: ischiocavernosus / bulbospongiousus / superficial transverse perineal - R -Layer 2: deep transverse perineal / sphincter urethrovaginalis - L Strength ( R / C / L): -Power (MMT): 3 -Endurance: 6 -Reps:5 -Fast twitch: 6 -Relaxation of PFM after quick contractions: normal Poor squeeze noted with reduced compression from ant, post, and side stauffer OTHER: - PFC noted at each quadrant of PF. Contraction noted L/R posterior pubis - Gripping of upper abs with attempts at TA contraction INTERNAL EXAMINATION INTRAVAGINAL 09/14: EXTERNAL EXAM: -Sensation: intact to touch -Gaping: slight ---Anterior wall: slight -Tension/scar: posterior wall -Skin integrity: WNL -Perineum: lowered (convex) -Cough: reflexive contraction -Lifting contraction: visible lift -Bulge: bulge -Prolapse: anterior wall slight -Hemhorroids: healed at 5 oclock position VAGINAL INTERNAL EXAM: -Prolapse: slight ant wall POPQ (performed pt hooklying with cue to ?bear down and hold breath as though having a BM? or ?bear down.? Bear down sustained 6-8 sec x 3 for first measure then 1-3 reps for subsequent measures. -GH: 5.5 -PB: 3.5 -LH (GH+PB): 9 Tenderness/pain to palpation/ tone: -Layer 1: ischiocavernosus / bulbospongiousus / superficial transverse perineal TTP L>R with inc?d tone -Layer 2: deep transverse perineal / sphincter urethrovaginalis TTP L>R with inc?d tone -Layer 3: puborectalis / pubococcygeus / iliococcygeus / coccygeus TTP L>R. Hypotonic into bilat IC, hypertonic bilat MT -Pelvic wall: obturator internus bilat -Scar tissue noted, hard to detect if L or R side Strength ( R / C / L): -Power (MMT): 3 -Endurance: 7 -Reps: 5 -Fast twitch: nt *Reduced squeeze, inc?d AP lift with slight compression circumfrentional Other: -Breathing examination: dec?d posterior and lateral ribcage mvmt with inhalation -Coordination: griping with upper abs bearing down into lower abdominal area -Noting dyssynergia of PF with PFC attempted during lengthening/bearing down EXTERNAL OBJECTIVE 11/24: -Movement screen: MS flexion hands to floor HS hypermobility with reduced posterior femoral glide. MS extension reduced TS/LS with pain in LBP. MS rotation reduced 50% to the L, 25% to the R with LBP -SLS: moderate pelvic drop on L -Posture: R IC 2 thumbwidths higher on R. Inc'd foot pronation with bilat hallux valgus. Supine MM and ASIS lower on R -Hip PROM: IR bilat 70. ER 80 bilat. Flexion WNL -Strength: R 3+ / 3- L Other Tests: -Coordination: clarity specialists with upper abs bearing down into lower abdominals with exhale -Breathing: dec?d posterior and lateral ribcage mvmt with inhalation -DR 1 finger width at BB and below. <1 knuckle depth Special tests: -Flexibility: + HF on R. TRANSRECTAL 11/10/23 -Healed hemorrhoids -EAS able to hold long contraction x 20 sec -EAS repeated contractions able to hold 6 x 8 sec holds -Reduced contraction from 9-3 from superior portion of EAS -Coccyx: reduced coccyx extension mobility. Slight TTP R coccygeus -EAS contraction 2/5 Patient Instructed in Risks/Benefits Yes Therapeutic Exercise Therapeutic Exercise Minutes (minutes) 23 Therapeutic Exercise: To Restore TE: Indicated for improvement Functional Status in strengthening and mobility. -Handouts with written instructions and photographs of exercises were issued to the patient for exercises to be included in HEP. Answered patient questions regarding POC, and mobility/stretches to perform if pain occurs -Assessment as above -- Powered by [employer] ?? Neuromuscular Re-Ed Neuromuscular Reeducation Minutes ( 20 minutes) Neuromuscular Reeducation Comments NMR: Indicated to facilitate improved muscle firing and postural awareness through the use of tactile cues. Transvaginal w/consent: -PFC on exhale 2x(8 x 3 holds ) -TA on exhale x 6 reps -PFTA 2x(8x3 holds) -PFTA w/ball squeeze x 8 reps - harder for patient to coordinate Self Care Management Training Self-Care Activity Minutes (minutes) 15 Self Care Management Training Education: Sneezing: -Importance of stacking posture with sneeze vs inc'd fwd flexion, impact of downward P -Importance of control of IAP with lower abdominal PF lift vs outward distention of abdominal wall -The knack for precontraction of PFM Impact of lower TA coordination with holding child Treatment Minutes Timed Code Treatment Minutes 58 Total Treatment Time 58 Billing Units Neuromuscular Reeducation Units 1 Self-Care Activity Units 1 Therapeutic Exercise Units 2 Assessment/Impression Assessment/Impression Pt had been seen for pelvic and perineal pain, mixed incontinence, lack of coordination for 7 visits from 09/15/23 to 12/08/23 during this episode of physical therapy. Reassessment was indicated this date as patient had not been since in nearly x 2 months. Re-evaluation noting persistent musculoskeletal impairments including PFC strength 3/5 with reduced circumferential squeeze of PFM, increased AP lift. Poor TA coordination with increased upper ab gripping. Motor coordination impairments likely adversely impacting LBP and PF coordination with sneezing. Impairments persistent likely due to poor compliance to HEP. Pt to benefit from continued therapy at a frequency of 1x every 2-3 for an additional 8 visits (16-24 wks). Focus of therapy on proximal coordination of PFTA with exercises, improving PF strength, and increasing spine mobility. Interventions including ther exercise, manual therapy, self-care, neuromuscular re-education. Pt at this time has not met all short/fdc goals and is not independent with HEP. Maximal therapeutic benefit has not been reached. Pt to benefit from ongoing therapy. Plan of Care Physical Therapy Goals STG (within 4 weeks) 1) Pt will demonstrate proper coordination of motor recruitment patterns for PF then TA activation during isometric activation while maintaining diaphragmatic breathing pattern -PROGRESSING TOWARD 2)Pt will recall at least 4 strategies to improve pressure management in order to reduce instances of incontinence outside PT sessions - MET 3) Pt will report at least 40% improvement in urinary leakage since start of therapy for improved health of vaginal tissues - PROGRESSING TOWARD LTG (within 8 weeks) 1) Pt will demonstrate proper coordination of motor recruitment patterns for PF then TA activation during dynamic UE/LE movements in all postures while maintaining diaphragmatic breathing pattern - UNMET 2)Pt will demonstrate ability to complete at least 10 quick contractions of PFM with full relaxation between reps in order to reduce incontinence with increases in IAP - UNMET 3) Pt will report at least 80% improvement in urinary leakage since start of therapy for improved health of vaginal tissues -PROGRESSING TOWARD 4)Pt will report absent urinary leakage with cough, sneeze. - UNMET 5) Pt will report at least 60% improvement in low back soreness/ache since start of PT for improved ability to care for children - NEW GOAL ON 02/07 Daily Plan of Care Comments -Progress PFTA coordination in different positions -Return transvaginal for PFTA coordination Recertification Information Reasons to Continue Skilled Therapy Pt had been seen for pelvic and perineal pain, mixed incontinence, lack of coordination for 7 visits from 09/15/23 to 12/08/23 during this episode of physical therapy. Reassessment was indicated this date as patient had not been since in nearly x 2 months. Re-evaluation noting persistent musculoskeletal impairments including PFC strength 3/5 with reduced circumferential squeeze of PFM, increased AP lift. Poor TA coordination with increased upper ab gripping. Motor coordination impairments likely adversely impacting LBP and PF coordination with sneezing. Impairments persistent likely due to poor compliance to HEP. Pt to benefit from continued therapy at a frequency of 1x every 2-3 for an additional 8 visits (16-24 wks). Focus of therapy on proximal coordination of PFTA with exercises, improving PF strength, and increasing spine mobility. Interventions including ther exercise, manual therapy, self-care, neuromuscular re-education. Pt at this time has not met all short/fdc goals and is not independent with HEP. Maximal therapeutic benefit has not been reached. Pt to benefit from ongoing therapy. Provider Signature Shows Agreement With POC & Medical Necessity Physician Comment/Change Comment or Changes Physician NPI Number #
== END 2024-05-24 12:51 | disposition home or self-care (01) ==
PROVIDERS: PCP Family Medicine; Visit Provider Advanced Practice Midwife
DX: N81.89 Other female genital prolapse (principal); Z51.89 Encounter for other specified aftercare
CPT/HCPCS: 97110; 97112; 97140; 97161; 97535